=== PATIENT | male | born 1960 | race Caucasian/White ===

== ENCOUNTER 2020-09-14 08:07 | Outpatient (CLI) | payer BC, SELFPAY ==
--- NOTE | ~2020-09-14 | CT_ITS ---
EXAMINATION: CT abdomen pelvis w con EXAM DATE: 09/14/2020 08:45 INDICATION: K57.92 - Diverticulitis of intestine, part unspecified, without perforation or abscess wi thout bleeding . TECHNIQUE: Spiral CT of the abdomen and pelvis was performed following intravenous injection of 100 m L Omnipaque 350. Axial, coronal and sagittal images of the abdomen and pelvis were reviewed. The do se-length product (DLP) for this examination was 1331.96 mGy-cm. The exposure was tailored according to patient size (auto mA exposure control), and iterative reconstruction (ASIR) was used as addition al dose reduction technique. There is no prior study for comparison. FINDINGS: There is sizable liver lesion in segment 7 with discontinuous peripheral nodular enhancemen t, consistent with hemangioma, measuring up to 5 cm. Spleen, adrenal glands, pancreas are unremarkabl e. Gallbladder is unremarkable. No biliary obstruction. Portal and splenic veins are patent. Kidne ys enhance symmetrically. There is no hydronephrosis. The prostate is unremarkable. The bladder i s unremarkable. There is no retroperitoneal or pelvic lymphadenopathy. There is mild scattered art eriosclerotic disease. Small umbilical and left inguinal fat-containing hernias. There is mild to moderate scattered colonic diverticulosis. There is no adjacent inflammatory change to suggest diverticulitis. The appendix is normal. The stomach and small bowel are unremarkable. There is expected amount of colonic stool. No free intraperitoneal gas. The heart is normal in si ze. There are no pericardial or pleural effusions. The lung bases are unremarkable. There are no o steoblastic or osteolytic lesions identified. IMPRESSION: 1. Small umbilical and left inguinal fat-containing hernias. 2. Right liver lesion consistent with hemangioma 3. Mild to moderate scattered diverticulosis. Reviewed, dictated and finalized at location B.
[2020-09-14 08:36] LABS: Estimated Glomerular Filt Rate > 60
== END 2020-09-14 08:08 | disposition home or self-care (01) ==
PROVIDERS: PCP Family Medicine; Visit Provider Physician Assistant
DX: K57.92 Diverticulitis of intestine, part unspecified, without perforation or abscess without bleeding (principal); K42.9 Umbilical hernia without obstruction or gangrene; K40.90 Unilateral inguinal hernia, without obstruction or gangrene, not specified as recurrent; K76.9 Liver disease, unspecified
CPT/HCPCS: 74177; Q9967

== ENCOUNTER 2021-01-19 08:07 | Outpatient (CLI) | payer BC, SELFPAY ==
--- NOTE | 2021-01-19 08:18 | ECG_ITS ---
Measurements Intervals [place] Rate: 72 P: 17 ME: 184 QRS: -11 QRSD: 104 T: 31 QT: 367 QTc: 404 Interpretive Statements SINUS RHYTHM BORDERLINE R WAVE PROGRESSION, ANTERIOR LEADS BORDERLINE ECG Electronically Signed On 01-19-2021 8:30:57 BRAKE LININGS [employer]ATER by Winston Esquivel D.O.
== END 2021-01-19 08:08 | disposition home or self-care (01) ==
LOC: ANHSURGERY 08:13
PROVIDERS: PCP Family Medicine; Visit Provider Surgery
DX: I10 Essential (primary) hypertension (principal); Z01.818 Encounter for other preprocedural examination; R94.31 Abnormal electrocardiogram [ECG] [EKG]
CPT/HCPCS: 93005

== ENCOUNTER 2021-01-23 02:48 | Day surgery (SDC) | payer BC, SELFPAY ==
[2021-01-17 08:43] VITALS: BMI 28.7
--- NOTE | 2021-01-17 09:21 | PC.NURSE ---
Report to the Outpatient Waiting Room, entrance under the green pavilion located off [facility], at time __12:15 on date __01/23/21 . OR Time: _2:15 . - You and your visitor will be asked a series of questions to screen for COVID 19 for your protection. - A mask is required within the hospital. - Only one visitor is allowed at this time. Patient visitors will be guided where to wait when not with patient. Preoperative COVID Testing Requirements: No COVID Test needed if: (proof is required; if not received patient will have Rapid Test prior to entry) - Patient has received COVID Vaccine at least 14 days prior to procedure date or - Patient has positive COVID test result within last 90 days of surgery date. COVID Test needed if above criteria is not met If not COVID vaccinated a COVID test must be conducted within 72 hours of surgery and patient is asked to isolate self from time of testing until procedure. You will go to the [facility] Site for your COVID testing. The [facility] site is located at the corner of [address] [facility]. You will only be called if COVID results are positive and your surgeon may reschedule your elective surgery date. Patients may have clear liquids (water, carbonated beverages, clear teas, apple juice) until 3 hours prior to surgery with a maximum of 20 ounces. STOP CLEAR LIQUIDS AT 11:15am on the morning of surgery. - No food from midnight until time of surgery - Infants may have breast milk until 4 hours before surgery, infant formula 6 hours prior to surgery. - Children will be allowed to drink immediately following surgery. If applicable, please bring a bottle or sippy cup to assist with drinking. Juice, water, soda, and popsicles are readily available. For infants on formula, please bring formula the day of surgery. Pacifiers are allowed. Take the following medications with a SIP of water the morning of surgery: _OLMESARTAN Medications to discontinue per physician ____MULTIVITAMINS &/OR SUPPLEMENTS Date to take last dose___01/20/21 Please no make-up, nail bulgarian, hairspray, perfume, deodorant, or body powder the day of surgery. No jewelry (including any body piercings) or valuables the day of surgery, leave them at home. Please take a shower or bath the night before, or the morning of, surgery with an antibacterial soap. Wear comfortable, loose fitting clothing. Children are encouraged to wear pajamas. - Jewelry must be removed prior to entering the operating room. Rings and piercings that are not removed may be cut off. - The hospital will not accept responsibility for valuables. - Please leave all valuables, including medications, at home the day of surgery. If you are going home after surgery, a licensed bull driver must drive you home. - NO public transportation without another adult. - We recommend that an adult stay with you for 24 hours following discharge. - We also recommend that you do not drive, make important decision, drink alcoholic beverages, or take any drugs that were not prescribed by your health care provider for at least 24 hours after your discharge time. For Pediatric surgeries, we recommend two adults accompany the child home (only one inside the building at this time). Follow any additional instructions given to you from your surgeon. Telephone instructions given to DEVIN HARDIN and asked if any additional questions and then verbalized understanding. Patient advised to call surgeon office or pre surgery nurse liaison [phone] if any additional questions.
[2021-01-23] VITALS (8 sets, daily range): BP systolic 121–143; BP diastolic 59–96; PULSE 60–79; RESP 10–18; TEMP 36.1–36.5; O2SAT 98–100
[2021-01-23] MEDS: KETOROLAC 15 MG/ML VIAL (*BKC) IV PUSH (11:12)
[2021-01-23] MEDS: ACETAMINOPHEN 500 MG TABLET 1000 MG PO (11:12)
[2021-01-23] MEDS: LACTATED RINGERS 1,000 ML 30 ML IV CONT ×2 (11:12→14:02)
--- NOTE | 2021-01-23 11:57 | WPDANESEPPF ---
Anes - Initial Pre Proc Eval Procedure: Operation Date: 01/23/21 12:45 Proposed Procedures p Open Umbilical Hernia Repair Possible Mesh - Michael Arroyo DO s Excision of Right Hip Mass - Michael Arroyo DO Date/Time: 01/23/21 11:57 Surgeon: Michael Arroyo DO Pre Op Diagnosis: umbilical hernia, 6cm rt hip mass Patient Data Age: 60 Gender: M Height: 1.83 m Weight: 99.3 kg Last Vital Signs Temp 36.5 C 01/23/21 10:57 Pulse 64 01/23/21 10:57 Resp 18 01/23/21 10:57 BP 143/96 H 01/23/21 10:57 Pulse Ox 98 01/23/21 10:57 Allergies Allergy/AdvReac Type Severity Reaction Status Date / Time erythromycin base Allergy Unknown Nausea Verified 01/23/21 11:30 lisinopril AdvReac Severe cough Verified 01/23/21 11:30 Home Medications Medication Instructions Recorded Confirmed Type psyllium husk (aspartame) 3.4 gram 6.8 gm PO DAILY #30 each 01/05/19 01/23/21 Rx oral powder packet aspirin 81 mg tablet,delayed 81 mg PO DAILY 06/16/19 01/23/21 History release glucosamine FOt-rod-asilghsksbi 2 tablet PO DAILY tablet 06/16/19 01/23/21 History 400 mg-200 mg-333 mg tablet omega-3 fatty acids 1,000 mg 1,000 mg PO DAILY 06/16/19 01/23/21 History capsule cetirizine 10 mg tablet 10 mg PO DAILY 12/02/19 01/23/21 History triamcinolone acetonide 0.1 % 1 applic TOPICAL QID #454 g 12/02/19 01/23/21 Rx topical cream olmesartan 20 mg tablet 20 mg PO DAILY #90 tablet 11/29/20 01/23/21 Rx Patient hx anesthesia problems: none Family hx anesthesia problems: none Results Review: All pre-operative results and documents have been reviewed as part of the pre-operative evaluation. [facility] Past Medical History Medical History (Updated 12/16/20 @ 16:51 by Michael Arroyo DO) Hx of hemorrhoids Surgical History Surgical History History of skin graft Hx of left inguinal hernia repair 1961 Hx of right inguinal hernia repair open repair with mesh in 2005 Family History Family History Father Hypertension Sibling Family history of rheumatoid arthritis Carcinoma of colon Hypertension Mother Family history of cardiovascular disease Cerebrovascular accident Hypertension Other Family history of psoriasis Social History Social History Smoking status: Never smoker Alcohol intake: never Substance use: never Substance use type: does not use Living arrangements: with family Spiritual care concerns: No Anes - Eval Final PreProcedure Day of Procedure 01/23/21 11:57 Patient weight: overweight Heart: regular rate and rhythm Lungs: clear to auscultation Airway: Mallampati scale class 1 Neurological: alert and oriented Last oral intake: >/= 8 hours ASA classification: II Emergent: no Anesthetic plan: proceed Anesthesia type and monitoring: general ETT and standard monitoring Results Review: All pre-operative results and documents have been reviewed as part of the pre-operative evaluation. Informed Consent: The patient's anesthetic plan and its attendant risks and benefits were discussed with the patient/family/POA. Questions were solicited and answers provided to the satisfaction of the patient/family/POA.
--- NOTE | 2021-01-23 12:31 | WPDHPUPDATE1 ---
History and Physical Update Update Date/Time: 01/23/21 12:31 History and Physical has been reviewed, including an updated exam of the patient. There are NO changes in the patient's condition. Risks, benefits, and alternatives have been discussed and questions answered. Patient agrees to proceed with procedure.
--- NOTE | 2021-01-23 12:31 | PM.IMHP ---
H&P: HPI History of Present Illness Date/Time: 01/23/21 12:31 Chief Complaint: umbilical hernia, right hip mass Narrative: 60 yo man presents for umbilical hernia repair and excision of 6cm right hip mass. He reports no changes since last seen in office. Review of Systems Review of Systems: All systems reviewed & are unremarkable except as noted in HPI and below Constitutional: Constitutional: Denies chills, Denies fever(s), Denies headache(s) and Denies weight loss Eyes: Eyes: Denies change in vision ENT: Denies dizziness, Denies headache(s), Denies neck mass and Denies throat swelling Cardiovascular: Cardiovascular: Denies chest pain, Denies lightheadedness and Denies dyspnea Respiratory: Respiratory: Denies cough, Denies dyspnea and Denies wheezing Gastrointestinal: Gastrointestinal: Denies abdominal pain, Denies change in bowel habits, Denies nausea and Denies vomiting Genitourinary: Genitourinary: Denies hematuria and Denies dysuria Musculoskeletal: Musculoskeletal: Reports as per HPI Integumentary/Breasts: Skin/Breast: Reports as per HPI Neurologic: Denies dizziness and Denies headache(s) Allergic/Immunologic: Allergic/Immunologic: Denies throat swelling and Denies wheezing PMFSH Past Medical History Medical History (Updated 12/16/20 @ 16:51 by Michael Arroyo DO) Hx of hemorrhoids Surgical History Surgical History History of skin graft Hx of left inguinal hernia repair 1961 Hx of right inguinal hernia repair open repair with mesh in 2005 Family History Family History Father Hypertension Sibling Family history of rheumatoid arthritis Carcinoma of colon Hypertension Mother Family history of cardiovascular disease Cerebrovascular accident Hypertension Other Family history of psoriasis Social History Social History Smoking status: Never smoker Alcohol intake: never Substance use: never Substance use type: does not use Living arrangements: with family Spiritual care concerns: No Meds Home Medications and Allergies Home Medications Medication Instructions Recorded Confirmed Type psyllium husk (aspartame) 3.4 gram 6.8 gm PO DAILY #30 each 01/05/19 01/23/21 Rx oral powder packet aspirin 81 mg tablet,delayed 81 mg PO DAILY 06/16/19 01/23/21 History release glucosamine KVa-zsd-uauzpvsfofg 2 tablet PO DAILY tablet 06/16/19 01/23/21 History 400 mg-200 mg-333 mg tablet omega-3 fatty acids 1,000 mg 1,000 mg PO DAILY 06/16/19 01/23/21 History capsule cetirizine 10 mg tablet 10 mg PO DAILY 12/02/19 01/23/21 History triamcinolone acetonide 0.1 % 1 applic TOPICAL QID #454 g 12/02/19 01/23/21 Rx topical cream olmesartan 20 mg tablet 20 mg PO DAILY #90 tablet 11/29/20 01/23/21 Rx Allergies Allergy/AdvReac Type Severity Reaction Status Date / Time erythromycin base Allergy Unknown Nausea Verified 01/23/21 11:30 lisinopril AdvReac Severe cough Verified 01/23/21 11:30 Vital Signs Vital Signs - 24 hr 01/23/21 10:57 Temperature 36.5 C Pulse Rate 64 Respiratory Rate 18 Blood Pressure 143/96 H Pulse Oximetry 98 Exam Const: General: no acute distress and alert Orientation/consciousness: patient oriented x3 HENMT: Head: normocephalic and atraumatic Ears: hearing grossly normal bilaterally General nose exam: Normal nares present Mouth: Yes Normal oral and palatal mucosa present Eyes: Periorbital: periorbital findings normal Sclera: sclerae normal EOM: EOMs intact bilaterally Neck: Neck: normal visual inspection, no lymphadenopathy and trachea midline Chest: Chest palpation & inspection: normal inspection of the chest Resp: Effort & Inspection: normal respiratory effort Auscultation: clear to auscultation bilaterally Cardio: Jugular venous distension: no JVD Rat
[2021-01-23] MEDS: ceFAZolin 2 GM/D5W 50 ML 2 GM/50 ML BAG IVPB (12:43)
[2021-01-23] MEDS: BUPIVACAINE HCL 0.5% PF 30 ML VIAL INFILTRATE (13:47)
--- NOTE | 2021-01-23 13:57 | W.PM.PROC2 ---
Procedure Note - Detailed Date of Procedure 01/23/21 Pre-op Diagnosis umbilical hernia, 6cm rt hip mass Post-op Diagnosis same Procedure Performed 1. Umbilical hernia repair with Parietex ventral patch 2. Excision of 6 cm right hip mass 3. Layered closure Surgeon Michael Arroyo, DO Anesthesia general and local (0.5% bupivacaine) Indications This is a 60-year-old man who presented with pain at his umbilicus. He noticed a small lump protruding at his umbilicus and was found to have a small reducible umbilical hernia on exam. Discussions were made with the patient about treatment options and decision was made to proceed with a umbilical hernia repair with possible mesh. The patient also has a mass on his right hip that appeared to be a subcutaneous lipoma. This was causing him some discomfort as well and decision was made to proceed with excision of 6 cm right hip mass. Findings Umbilical hernia repair was performed. The patient was found to have a 1.5 cm umbilical hernia containing some preperitoneal fat. The hernia sac was excised and sent to the lab for pathology. Decision was made to repair this using a 4.6 cm Parietex ventral patch. The 6 cm right hip mass was then excised as well. This appeared to be a subcutaneous lipoma. Mass was completely excised and sent to the lab for pathology. The incision was then closed in layers using 3-0 Vicryl simple interrupted sutures in Levy's fascia and 4-0 Monocryl subcuticular suture. Description of Procedure Procedure as well as risks, benefits, and alternatives were discussed with the patient. Written consent was obtained and placed in chart prior to procedure. Patient was brought back to surgical suite. He was placed supine on operating table. He was then intubated by Anesthesia Department. His abdomen was prepped and draped in sterile fashion using chlorhexidine prep. 0.5% bupivacaine was infiltrated locally around the operative area. A 3 cm curvilinear incision was made just superior to the umbilicus using a 15 blade scalpel. Electrocautery was used for hemostasis and for dissection down through the subcutaneous fat. Hernia sac was encountered and this was carefully freed up from surrounding subcutaneous fat using electrocautery. The hernia sac was freed up all the way down to the level of the fascia, and then it was transected using electrocautery. The hernia sac was sent to the lab for pathology. The umbilical stalk was then lifted off of the fascia with electrocautery. The hernia defect was then measured. This was measuring approximately 15 mm. The decision was made to use a 4.6 cm Parietex ventral patch. The peritoneum was cleared under the fascia circumferentially around the hernia using blunt dissection and electrocautery. Once a wide enough pocket was created for the mesh, the mesh was then placed within this preperitoneal pocket and laid out flat centered on the hernia defect. The mesh appeared to be sitting in proper position. The mesh was then secured at the 4 corners using 0 Ethibond U-stitch trans fascial sutures. Once all 4 sutures were placed, the mesh was lifted up against the abdominal wall and appeared to be properly centered on the hernia defect. The fascia of the hernia defect was then reapproximated over the mesh using 0 Ethibond [id number]-vr-dzias sutures. The 4 transfascial sutures were then tied down in place. The repair was inspected and appeared secure. 0.5% bupivacaine with epinephrine was infiltrated around the fascia and subcutaneous space. The umbilical stalk was then reapproximated to the fascia using a 3 0 Vicryl simple interrupted suture. The deep dermis was reapproximated using 3 0 Vicryl simple interrupted sutures, and then the skin was approximated using 4 Monocryl running subcuticular suture. Exofin glue was then applied on top. The patient was then awakened from anesthesia, extubated, and transferred to recovery. I then moved my attention to the right hi
== END 2021-01-23 15:42 | disposition home or self-care (01) ==
PROVIDERS: PCP Family Medicine; Visit Provider Surgery
PROC: (CPT 49585; principal; 2021-01-23 12:45)
PROC: (CPT 49585; 2021-01-23 12:45)
DX: K42.9 Umbilical hernia without obstruction or gangrene (principal); D17.23 Benign lipomatous neoplasm of skin and subcutaneous tissue of right leg; Z79.82 Long term (current) use of aspirin
CPT/HCPCS: 49585; 27337; 88302; 88304; A9270; C1781; J0690; J1100; J1885; J2405; J2704; J3010; J7120

== ENCOUNTER 2021-02-13 20:08 | Emergency (ER) | payer BC, SELFPAY ==
--- NOTE | ~2021-02-13 | XR_ITS ---
XR chest 1V portable DATE: 02/13/2021 21:03 INDICATION: Midsternal pressure. Palpitations. Atrial fibrillation. Covid-positive on 02/09/2021. TECHNIQUE: Portable upright AP chest on 02/13/2021 at 2054 hours COMPARISON: None FINDINGS: Normal heart size. No hilar or mediastinal enlargement. No pulmonary infiltrate or consolid ation, pleural effusion or pulmonary vascular congestion or pneumothorax. Mild dextro scoliosis of the thoracic spine. IMPRESSION: No active cardiopulmonary disease Reviewed, dictated and finalized at location A. T PRODUCTION ASSOCIATE
--- NOTE | ~2021-02-13 | CT_ITS ---
EXAMINATION: CTA chest PE protocol EXAM DATE: 02/14/2021 02:13 INDICATION: dyspnea and COVID. Palpitations. TECHNIQUE: Spiral CTA of the chest (pulmonary arteries) was performed with 100 cc Omnipaque 350 intr avenous contrast injection. Images were acquired during the pulmonary arterial phase. Coronal maxi mum intensity projection 3D-reconstructions were created by the technologist on dedicated workstation . Axial, coronal and sagittal reformatted images were reviewed. The dose-length product (DLP) for t his examination was 397.18 mGy-cm. The exposure was tailored according to patient size (auto mA exp osure control), and iterative reconstruction (ASIR) was used as additional dose reduction technique. There is no prior study for comparison. FINDINGS: Pulmonary arteries are well opacified and without intraluminal filling defects. No thora cic aortic dissection. The lungs are clear. There are no pleural or pericardial effusions. Trach eobronchial tree is patent. There is no mediastinal, hilar or axillary lymphadenopathy. There is no pneumothorax. Heart normal in size. No evidence of coronary arterial calcification. Upper abd omen is unremarkable. There is thoracic spondylosis without osteoblastic or osteolytic lesions iden tified. IMPRESSION: No acute cardiopulmonary findings. Reviewed, dictated and finalized at location A. CYLINDER PRESS OPERATOR
--- NOTE | 2021-02-13 20:10 | ECG_ITS ---
Measurements Intervals [place] Rate: 112 P: SC: 0 QRS: -27 QRSD: 107 T: 37 QT: 305 QTc: 416 Interpretive Statements ATRIAL FLUTTER/TACHYCARDIA WITH RAPID VENTRICULAR RESPONSE CANNOT RULE OUT SEPTAL INFARCT, AGE INDETERMINATE BASELINE ARTIFACT- I, II, III, AVR, AVL, AVF ABNORMAL ECG Electronically Signed On 02-14-2021 7:31:22 RADIOLOGIST CHIEF OF BREAST IMAGING by Winston Esquivel D.O.
[2021-02-13 20:15] VITALS: BP 156/98; PULSE 112; RESP 20; TEMP 36.1; O2SAT 100
[2021-02-13 20:31] LABS: Basophils Percent Auto 0.3 % (0.2-1.2); Eosinophils Absolute Auto 0.1 K/mm3 (0-0.3); Eosinophils Percent Auto 2.6 % (0-4.4); Hematocrit 46.1 % (42.0-52.0); Hemoglobin 15.6 g/dL (14.0-18.0); Immature Granulocyte Absolute 0.01 K/mm3 (0.00-0.031); Immature Granulocyte Percent A 0.3 % (0-0.5); Lymphocytes Absolute Auto 1.11 K/mm3 (0.9-3.2); Lymphocytes Percent Auto 32.6 % (18.3-44.2); Mean Corpuscular HGB Conc 33.8 g/dl (32-36); Mean Corpuscular Hemoglobin 30.4 pg (26-34); Mean Corpuscular Volume 89.7 fl (80-100); Mean Platelet Volume 9.6 fl (7.4-10.4); Monocytes Absolute Auto 0.3 K/mm3 (0.1-0.6); Monocytes Percent Auto 8.8 % (2.6-8.5); Neutrophils Absolute Auto 1.9 K/mm3 (1.3-6.7); Neutrophils Percent Auto 55.4 % (45.5-73.1); Platelet Count Result 246 k/mm3 (150-375); Red Blood Count 5.14 M/mm3 (4.6-6.20); Red Cell Distribution Width 12.9 % (11.5-14.5); White Blood Count 3.4 K/mm3 (4.5-10.0)
[2021-02-13 20:40] LABS: Prothrombin Time 12.6 Seconds (11.1-14.7)
[2021-02-13 20:41] LABS: Partial Thromboplastin Time 26.6 SECONDS (22.3-36.8)
[2021-02-13 20:59] LABS: Alanine Aminotransferase 31 U/L (4-50); Albumin Level 4.4 g/dL (3.5-5.1); Alkaline Phosphatase 60 U/L (38-126); Anion Gap 0 mmol/L (8-16); Aspartate Amino Transferase 34 U/L (17-59); Bilirubin,Total 0.5 mg/dL (0.2-1.3); Blood Urea Nitrogen 12 mg/dL (9-20); Calcium 8.5 mg/dL (8.4-10.2); Carbon Dioxide 32 mmol/L (22-30); Chloride 104 mmol/L (98-107); Estimated CRCL calculation 78 ml/min; Estimated Glomerular Filt Rate > 60; Glucose 156 mg/dL (65-110); Lipase 185 U/L (23-300); Potassium 3.6 mmol/L (3.4-5.0); Sodium 136 mmol/L (137-145)
[2021-02-13 21:07] LABS: Troponin I < 0.012 ng/mL (0.000-0.034)
--- NOTE | 2021-02-13 23:34 | ED.ARRPALP ---
HPI - Arrhythmia/Palpitations General Chief Complaint: Arrhythmia/Palpitations Stated Complaint: COVID +, palpitations Time Seen by Provider: 02/13/21 23:19 Source: RN notes reviewed History of Present Illness HPI narrative: Patient presents emergency department from home for arrhythmia. Patient states that he was diagnosed with COVID-19 with a home test on February 09 he states he began to have symptoms on the patient states that today he noted that his heart was beating fast and irregular for like a previous episode of atrial fibrillation he had approximately 25 years ago. At that time was contributed to increased caffeine use and has had no symptoms since that time he denies any chest pain notes mild dyspnea on a cough patient does also state he had recent abdominal wall hernia surgery by Dr. Arroyo at the beginning of January Related Data Home Medications Medication Instructions Recorded Confirmed aspirin 81 mg tablet,delayed 81 mg PO DAILY 06/16/19 01/23/21 release glucosamine DFh-uco-drapveolhhm 2 tablet PO DAILY tablet 06/16/19 01/23/21 400 mg-200 mg-333 mg tablet omega-3 fatty acids 1,000 mg 1,000 mg PO DAILY 06/16/19 01/23/21 capsule cetirizine 10 mg tablet 10 mg PO DAILY 12/02/19 01/23/21 Allergies Allergy/AdvReac Type Severity Reaction Status Date / Time erythromycin base Allergy Unknown Nausea Verified 02/13/21 20:20 lisinopril AdvReac Severe cough Verified 02/13/21 20:20 Review of Systems Review of Systems: Gen.: Denies fevers or chills Eyes: Denies eye pain or visual change ENT: Denies congestion Respiratory: Denies shortness of breath or cough CV: See HPI GI: Denies abdominal pain nausea, emesis or diarrhea Musculoskeletal: Denies back pain or muscle pain Neuro: Denies numbness, tingling, weakness or focal weakness Skin: Denies rash Except as documented, all other systems reviewed and negative PMFSH Past Medical History Medical History Hx of hemorrhoids Surgical History Surgical History History of skin graft Hx of left inguinal hernia repair 1961 Hx of right inguinal hernia repair open repair with mesh in 2005 Family History Family History Father Hypertension Sibling Family history of rheumatoid arthritis Carcinoma of colon Hypertension Mother Family history of cardiovascular disease Cerebrovascular accident Hypertension Other Family history of psoriasis Social History Social History Smoking status: Never smoker Alcohol intake: never Substance use: never Substance use type: does not use Spiritual care concerns: No Exam Narrative: APPEARANCE: No acute distress, nontoxic, resting in bed EYES: EOMI HEENT: Normocephalic, atraumatic, OMM RESPIRATORY: No respiratory distress Clear to auscultation bilaterally with no rhonchi wheezing or rales. CARDIOVASCULAR: Irregular irregular without murmurs rubs or gallops. ABDOMINAL: Soft, nontender, nondistended, no rebound or guarding MUSCULOSKELETAl: Moves all extremities. No clubbing, cyanosis or edema. NEURO: Awake and alert. Following commands, speech normal, no focal deficits SKIN:: Warm, dry. No rashes lesions or abrasions PSYCHIATRIC: Normal affect/mood, Course Course Emergency Course: Called and discussed with Dr. Barnes presentation work-up at this time he recommends the patient be started on metoprolol 25 mg twice a day for rate control as well as Eliquis recommends discharge to follow-up as an outpatient : Discussed with Dr. Stokes per Dr. Rivera presentation work-up updated him on treatment plan and agreement at this time Discussed with patient results of workup and diagnosis. Discussed need for follow-up with primary care, proper use of medication, and reasons to return to the [facility]
[2021-02-13 23:38] VITALS: BP 124/83; PULSE 108; RESP 17; O2SAT 95
[2021-02-14] VITALS (13 sets, daily range): BP systolic 117–136; BP diastolic 79–97; PULSE 85–121; RESP 12–21; O2SAT 96–100
[2021-02-14 00:03] LABS: Troponin I < 0.012 ng/mL (0.000-0.034)
--- NOTE | 2021-02-14 00:22 | ECG_ITS ---
Measurements Intervals [place] Rate: 83 P: ND: 0 QRS: -27 QRSD: 104 T: 19 QT: 314 QTc: 370 Interpretive Statements ATRIAL FLUTTER/TACHYCARDIA BORDERLINE R WAVE PROGRESSION, ANTERIOR LEADS BASELINE ARTIFACT- II, III, AVR, AVL, AVF, V1-V6 ABNORMAL ECG Electronically Signed On 02-14-2021 7:36:14 DISC PAD PLATE FILLER by Winston Esquivel D.O.
[2021-02-14] MEDS: SODIUM CHLORIDE 0.9% IV 1,000 ML 999 ML IV CONT (00:55)
[2021-02-14 03:06] LABS: Troponin I < 0.012 ng/mL (0.000-0.034)
[2021-02-14] MEDS: METOPROLOL TARTRATE 25 MG TABLET PO (05:07)
[2021-02-14] MEDS: APIXABAN 5 MG TABLET PO (05:08)
== END 2021-02-14 06:16 | disposition home or self-care (01) ==
PROVIDERS: Emergency Medicine; Emergency Provider Emergency Medicine; PCP Family Medicine
DX: U07.1 COVID-19 (principal); I48.92 Unspecified atrial flutter; Z79.82 Long term (current) use of aspirin
CPT/HCPCS: 36415; 71045; 71275; 80053; 83690; 84484; 85025; 85610; 85730; 93005; 96360; 96361; 99284; A9270; J7030; Q9967

== ENCOUNTER 2021-03-17 02:19 | Day surgery (SDC) | payer BC, SELFPAY ==
[2021-03-16 14:39] VITALS: BMI 28.2
[2021-03-17] VITALS (13 sets, daily range): BP systolic 91–145; BP diastolic 60–122; PULSE 63–111; RESP 9–22; TEMP 36.2; O2SAT 9–100; BMI 28.2
--- NOTE | 2021-03-17 07:00 | ECG_ITS ---
Measurements Intervals [place] Rate: 61 P: 27 CT: 186 QRS: -23 QRSD: 101 T: 7 QT: 399 QTc: 402 Interpretive Statements SINUS RHYTHM DELAYED PRECORDIAL R/S TRANSITION BORDERLINE ECG Electronically Signed On 03-17-2021 9:32:10 LINE SERVER by Winston Esquivel D.O.
--- NOTE | 2021-03-17 07:00 | ECG_ITS ---
Measurements Intervals [place] Rate: 107 P: MI: 0 QRS: -22 QRSD: 94 T: 25 QT: 335 QTc: 447 Interpretive Statements ATRIAL FLUTTER/TACHYCARDIA WITH RAPID VENTRICULAR RESPONSE DELAYED PRECORDIAL R/S TRANSITION BASELINE ARTIFACT- III, AVL, AVF ABNORMAL ECG Electronically Signed On 03-17-2021 7:48:51 [employer] by Winston Esquivel D.O.
[2021-03-17 08:11] LABS: Alanine Aminotransferase 23 U/L (4-50); Albumin Level 4.4 g/dL (3.5-5.1); Alkaline Phosphatase 62 U/L (38-126); Anion Gap 8 mmol/L (8-16); Aspartate Amino Transferase 24 U/L (17-59); Bilirubin,Total 0.6 mg/dL (0.2-1.3); Blood Urea Nitrogen 10 mg/dL (9-20); Carbon Dioxide 24 mmol/L (22-30); Chloride 108 mmol/L (98-107); Estimated CRCL calculation 78 ml/min; Estimated Glomerular Filt Rate > 60; Glucose 135 mg/dL (65-110); Magnesium 2.1 mg/dL (1.6-2.3); Potassium 4.2 mmol/L (3.4-5.0); Sodium 140 mmol/L (137-145)
--- NOTE | 2021-03-17 08:38 | WPDMODSED ---
Moderate Sedation Note-Pt Data Patient Data Diagnosis: Atrial flutter with rapid ventricular response Present Complaint: none Procedure to be performed/Plan: transesophageal echocardiogram guided elective electrical cardioversion Allergies Allergy/AdvReac Type Severity Reaction Status Date / Time erythromycin base Allergy Unknown Nausea Verified 02/24/21 08:08 lisinopril AdvReac Severe cough Verified 02/24/21 08:08 Home Medications Medication Instructions Recorded Confirmed Type psyllium husk (aspartame) 3.4 gram 6.8 gm PO DAILY #30 each 01/05/19 03/16/21 Rx oral powder packet aspirin 81 mg tablet,delayed 81 mg PO DAILY 06/16/19 03/16/21 History release glucosamine ZUl-[id number]-gnopxfeslkj 2 tablet PO DAILY tablet 06/16/19 03/16/21 History 400 mg-200 mg-333 mg tablet omega-3 fatty acids 1,000 mg 1,000 mg PO DAILY 06/16/19 03/16/21 History capsule cetirizine 10 mg tablet 10 mg PO DAILY 12/02/19 03/16/21 History triamcinolone acetonide 0.1 % 1 applic TOPICAL QID #454 g 12/02/19 03/16/21 Rx topical cream olmesartan 20 mg tablet 20 mg PO DAILY #90 tablet 11/29/20 03/16/21 Rx apixaban [Eliquis] 5 mg PO BID #30 tablet 02/14/21 03/16/21 Rx metoprolol tartrate 25 mg tablet 25 mg PO BID #60 tablet 02/27/21 03/16/21 Rx Current Medications: Active Medications Sodium Chloride (Normal Saline Iv) 1,000 mls @ 30 mls/hr IV CONT .Q24H KENDRICK Sedation/Anesthesia: No previous sedation/anesthesia problems (including family history). ON LICENSE OF [facility] Past Medical History Medical History Atrial flutter Essential (primary) hypertension Hx of hemorrhoids Mixed hyperlipidemia Surgical History Surgical History H/O excision of mass excision of 6 cm right hip mass 01/23/21 H/O umbilical hernia repair 01/23/21 History of skin graft Hx of left inguinal hernia repair 1961 Hx of right inguinal hernia repair open repair with mesh in 2006 Family History Family History Father Hypertension Sibling Family history of rheumatoid arthritis Carcinoma of colon Hypertension Mother Family history of cardiovascular disease Cerebrovascular accident Hypertension Other Family history of psoriasis Social History Social History Alcohol intake: never Substance use: never Substance use type: does not use Living arrangements: with family Spiritual care concerns: No Mod Sed Physical Exam Physical Exam Pre Procedural Exam: Normal: Appearance, Eyes, Ears, Nose, Neck ( supple, normal range of motion), Throat ( posterior hypopharynx clear, nonerythematous), Airway ( normal anatomy, no obstruction), Lungs ( clear to auscultation bilaterally), Heart Size, Heart Rate ( tachycardia), Heart Rhythm (regularly irregular ), Neuro Exam, Abdomen, Liver, Extremities and Skin Hours since solid foods: 12 Hours since liquid intake: 12 Mallampati Classification: class III Internal Medicine - PN: Obj Da Vital Signs Vital Signs: Vital Signs - 24 hr 03/17/21 07:30 Temperature 36.2 C L Pulse Rate 107 H Respiratory Rate 20 Blood Pressure 136/94 H Pulse Oximetry 97 Meds/Results Medications: Active Medications Generic Name Dose Route Start Last Admin Trade Name Freq PRN Reason Stop Dose Admin Sodium Chloride 1,000 mls @ 30 mls/hr 03/17/21 07:00 Normal Saline Iv IV CONT .Q24H KENDRICK Labs CBC & Chem 7: 03/17/21 07:36 Labs: Laboratory Results - last 24 hr 03/17/21 07:36 Sodium 140 Potassium 4.2 Chloride 108 H Carbon Dioxide 24 Anion Gap 8 BUN 10 Creatinine 1.00 Estim Creat Clear Calc 78 Estimated GFR > 60 Glucose 135 H Calcium 9.0 Magnesium 2.1 Total Bilirubin 0.6 AST 24 ALT 23 Alkaline Phosphatase 62 Total Protein 7.0 Albumin 4.4 ASA Cl
--- NOTE | 2021-03-17 08:40 | WPDHPUPDATE1 ---
History and Physical Update Update Date/Time: 03/17/21 08:40 History and Physical has been reviewed, including an updated exam of the patient. There are NO changes in the patient's condition. Risks, benefits, and alternatives have been discussed and questions answered. Patient agrees to proceed with procedure.
--- NOTE | 2021-03-17 09:12 | WPDTECDV ---
AURA with Cardioversion Date of procedure: 03/17/21 Procedure Type: Transesophageal echocardiogram guided elective electrical cardioversion Diagnosis: Atrial flutter with rapid ventricular response Indications: Atrial flutter with rapid ventricular response Description of Procedure: Brief history present illness: Patient is a pleasant 60-year-old male with history of hypertension, dyslipidemia presents with new diagnosis atrial flutter with rapid ventricular response symptomatic with palpitations after COVID-19 infection referred for transesophageal echocardiogram-guided elective electrical cardioversion in attempt to restore sinus rhythm. patient has been anticoagulated for less than 4 weeks on systemic anticoagulation and per our discussion transesophageal echocardiographic guidance will be pursued to exclude intracardiac thrombus. Procedure in detail: After verbal and written informed consent was obtained the patient risks, benefits, and alternatives explained in detail the patient agreed to proceed with the plan of care as outlined above. Patient was evaluated at bedside in the Cardiac catheterization lab recovery room. On examination, neck was supple with normal range of motion, no restrictions to opening of the oral cavity, jaw angle and posterior hypopharynx was clear. Lungs were clear to auscultation. Patient was placed in appropriate 30 to 45 degree angle in a supine, slight left lateral decubitus position. Patient was monitored throughout the study with telemetry, oxygen saturation, end-tidal CO2 monitoring, blood pressure, heart rate, and respirations. Anterior and posterior defibrillator pads placed in the appropriate positions. The posterior hypopharynx was then locally anesthetized using repeated administration of Hurricaine spray as well as gargled viscous lidocaine. After local anesthetic of the posterior hypopharynx was achieved and the oral bite block placed, moderate sedation was administered. Through the oral bite block, the transesophageal echocardiogram probe was advanced into the posterior hypopharynx and into the esophagus easily and without complication. Multiple, multiplanar echocardiographic images were obtained in multiple standard re-projections. Pulsed wave, continuous-wave, and color-flow Doppler were utilized in conjunction with this study. At the conclusion of the study, the transesophageal echocardiogram probe was removed easily and without complication. Patient tolerated the procedure well without difficulty. Patient was in atrial fibrillation throughout the study. Sedation: Moderate Sedation/Anesthesia administration: Patient denied previous intolerance or complications with anesthesia/sedation. Please see sedation note for documentation of the pre-procedure physical examination. As noted above, after adequate local anesthesia of the posterior hypopharynx was achieved, a total of 5mg intravenous Versed and a total of 125 mcg intravenous Fentanyl in multiple divided doses was utilized for moderate sedation. Sedation start time was and end time was for a total of minutes [id number] intra-procedure time. Sedation was administered by a qualified observer Elvia Norman RN under my supervision with intra-procedure [id number] observation and management throughout the entirety of the procedure. There were no other issues or complications and patient tolerated the procedure well and sedation protocol well and I was present for the entirety. Findings: FINDINGS: LEFT VENTRICLE: Size was normal with lower limits normal LV systolic function EF 50-55% without wall motion abnormalities borderline mild concentric left ventricular hypertrophy. RIGHT VENTRICLE: Size and systolic function within normal limits. LEFT ATRIUM: Normal size. RIGHT ATRIUM: Normal size. INTERATRIAL SEPTUM: Interatrial septum is aneurysmal with evidence of a small shunt with color-flow Doppler and with injection of agitated saline with bubble crossing
--- NOTE | 2021-03-17 09:39 | PC.NURSE ---
Dr Barnes speaking with pt about the outcome of procedure.
--- NOTE | 2021-03-17 10:53 | SUR.PHASEII ---
Discharge instructions read to pt. Pt states understanding. Pt transported by wheelchair by ISABEL Paulson for discharge.
== END 2021-03-17 11:08 | disposition home or self-care (01) ==
PROVIDERS: PCP Family Medicine; Visit Provider Internal Medicine Cardiovascular Disease
PROC: (CPT 93312; principal; 2021-03-17 08:30)
PROC: 5A2204Z Restoration of Cardiac Rhythm, Single (ICD-10-PCS; 2021-03-17 08:30)
DX: I48.92 Unspecified atrial flutter (principal); U09.9 Post COVID-19 condition, unspecified; R00.2 Palpitations; Z79.01 Long term (current) use of anticoagulants; I10 Essential (primary) hypertension; E78.2 Mixed hyperlipidemia; I34.0 Nonrheumatic mitral (valve) insufficiency; I44.30 Unspecified atrioventricular block
CPT/HCPCS: 36415; 80053; 83735; 92960; 93312; 93320; 93325; J2250; J3010; J7040

== ENCOUNTER → 2021-05-13 08:18 | Outpatient (CLI) | payer BC, SELFPAY ==
[2021-05-13 13:19] LABS: SARS-CoV-2 RNA PCR Negative
== END ==
PROVIDERS: PCP Family Medicine
DX: I48.92 Unspecified atrial flutter (principal); Z20.822 Contact with and (suspected) exposure to COVID-19
CPT/HCPCS: C9803; U0003; U0005

== ENCOUNTER 2021-05-13 09:01 | Outpatient (CLI) | payer BC, SELFPAY ==
[2021-05-13 09:43] LABS: Basophils Percent Auto 0.7 % (0.2-1.2); Eosinophils Absolute Auto 0.1 K/mm3 (0-0.3); Eosinophils Percent Auto 2.4 % (0-4.4); Hematocrit 46.8 % (42.0-52.0); Hemoglobin 15.3 g/dL (14.0-18.0); Immature Granulocyte Absolute 0.02 K/mm3 (0.00-0.031); Immature Granulocyte Percent A 0.5 % (0-0.5); Lymphocytes Percent Auto 21.9 % (18.3-44.2); Mean Corpuscular HGB Conc 32.7 g/dl (32-36); Mean Corpuscular Hemoglobin 30.3 pg (26-34); Mean Corpuscular Volume 92.7 fl (80-100); Mean Platelet Volume 9.5 fl (7.4-10.4); Monocytes Absolute Auto 0.5 K/mm3 (0.1-0.6); Monocytes Percent Auto 12.9 % (2.6-8.5); Neutrophils Absolute Auto 2.5 K/mm3 (1.3-6.7); Neutrophils Percent Auto 61.6 % (45.5-73.1); Platelet Count Result 260 k/mm3 (150-375); Red Blood Count 5.05 M/mm3 (4.6-6.20); Red Cell Distribution Width 13.2 % (11.5-14.5); White Blood Count 4.1 K/mm3 (4.5-10.0)
[2021-05-13 09:54] LABS: Alanine Aminotransferase 23 U/L (4-50); Albumin Level 4.5 g/dL (3.5-5.1); Alkaline Phosphatase 52 U/L (38-126); Anion Gap 8 mmol/L (8-16); Aspartate Amino Transferase 28 U/L (17-59); Bilirubin,Total 0.9 mg/dL (0.2-1.3); Blood Urea Nitrogen 11 mg/dL (9-20); Calcium 8.9 mg/dL (8.4-10.2); Carbon Dioxide 30 mmol/L (22-30); Chloride 103 mmol/L (98-107); Cholesterol 178 mg/dL (0-200); Estimated Glomerular Filt Rate > 60; Glucose 119 mg/dL (65-110); HDL Direct 24 mg/dL; Potassium 4.3 mmol/L (3.4-5.0); Sodium 141 mmol/L (137-145); Triglycerides 233 mg/dL (<150)
[2021-05-13 10:05] LABS: LDL Cholesterol Direct 95 mg/dL
[2021-05-13 10:29] LABS: Free T4 Free Thyroxine 0.81 ng/mL (0.78-2.19)
== END 2021-05-13 09:02 | disposition home or self-care (01) ==
PROVIDERS: PCP Family Medicine
DX: I48.4 Atypical atrial flutter (principal); E78.2 Mixed hyperlipidemia; I10 Essential (primary) hypertension; R60.9 Edema, unspecified; R73.03 Prediabetes; Z79.899 Other long term (current) drug therapy
CPT/HCPCS: 36415; 80053; 80061; 83036; 84439; 84443; 85025

== ENCOUNTER 2021-06-23 16:20 | Emergency (ER) | payer BC, SELFPAY ==
[2021-06-23 16:28] VITALS: BP 137/87; PULSE 70; RESP 18; TEMP 36.6; O2SAT 97
--- NOTE | 2021-06-23 16:49 | ED.GENADULT ---
HPI - General Adult General Chief complaint: Upper Respiratory Infection Stated complaint: Runny Nose,Cough,Congestion Source: patient Mode of arrival: ambulatory Limitations: no limitations History of Present Illness HPI narrative: Patient is a 61-year-old male who presents to the [facility] via POV for evaluation of a sinus problem that began approximately 1 week ago. Additionally, he reports wet, nonproductive cough, runny nose, sinus pressure, sinus congestion, sinus pain, and left ear popping. OTC sinus medications provide some relief. He does not identify aggravating factors. Denies known exposure to sick contacts. He is fully vaccinated against COVID and influenza. Related Data Home Medications Medication Instructions Recorded Confirmed aspirin 81 mg tablet,delayed 81 mg PO DAILY 06/16/19 06/23/21 release glucosamine SOb-oue-kprpenrxvqj 2 tablet PO DAILY tablet 06/16/19 06/23/21 400 mg-200 mg-333 mg tablet omega-3 fatty acids 1,000 mg 1,000 mg PO DAILY 06/16/19 06/23/21 capsule cetirizine 10 mg tablet 10 mg PO DAILY 12/02/19 06/23/21 metoprolol tartrate 50 mg tablet 50 mg PO BID 05/03/21 06/23/21 Allergies Allergy/AdvReac Type Severity Reaction Status Date / Time erythromycin base Allergy Intermediate Nausea Verified 06/23/21 16:24 lisinopril AdvReac Intermediate cough Verified 06/23/21 16:24 Review of Systems Review of Systems: Denies fever, chills, sweats, change in appetite, poor p.o. intake, sore throat, lymphadenopathy, dental pain, dizziness, persistent headaches, shortness of breath, wheezing, hemoptysis, chest pain, shortness of breath, abdominal pain, nausea, vomiting, and diarrhea. [facility] Past Medical History Medical History Atrial flutter Essential (primary) hypertension Hx of hemorrhoids Mixed hyperlipidemia Surgical History Surgical History H/O excision of mass excision of 6 cm right hip mass 01/23/21 H/O umbilical hernia repair 01/23/21 History of skin graft Hx of left inguinal hernia repair 1961 Hx of right inguinal hernia repair open repair with mesh in 2006 Family History Family History Father Hypertension Sibling Family history of rheumatoid arthritis Carcinoma of colon Hypertension Mother Family history of cardiovascular disease Cerebrovascular accident Hypertension Other Family history of psoriasis Social History Social History Alcohol intake: never Substance use: never Substance use type: does not use Spiritual care concerns: No Comments I have reviewed and agree with the patient's past medical, surgical, social, and family hx as documented by the RN. There is no relevant family history pertinent to the presenting complaint. Exam Narrative: GENERAL: Well-appearing, well-nourished, and in no acute distress. HEAD: Normocephalic, atraumatic. No evidence of facial swelling. Moderate maxillary sinus tenderness appreciated upon palpation. EYES: PERRLA and EOMI. No evidence of erythema, swelling, or drainage. ENT: Right TM is retracted. Left TM is retracted and erythematous. Bilateral ear canals are normal. No TM perforation. Nares clear, no rhinorrhea or epistaxis. Bilateral turbinates without erythema/ swelling. Mucous membranes moist and pink. Uvula is midline without erythema and swelling. No evidence of petechial rash, cobblestoning, lesions, ulcers, erythema, swelling, exudates, peritonsillar abscess, tenting, or drooling. Breath odor and voice normal. NECK: Supple. No Lymphadenopathy or nuchal rigidity appreciated. CHEST: Bilateral lung singh are clear to auscultation. No respiratory distress. No pleuritic cp upon examination. Moderate wet cough appreciated upon examination. HEART: Regular rate
== END 2021-06-23 17:00 | disposition home or self-care (01) ==
PROVIDERS: Emergency Provider Nurse Practitioner Family; PCP Family Medicine
DX: J06.9 Acute upper respiratory infection, unspecified (principal); J01.90 Acute sinusitis, unspecified; I10 Essential (primary) hypertension; E78.2 Mixed hyperlipidemia; Z79.82 Long term (current) use of aspirin
CPT/HCPCS: 99213; G0463

== ENCOUNTER 2023-02-15 09:43 | Outpatient (CLI) | payer BC, SELFPAY ==
[2023-02-15 13:46] LABS: Alanine Aminotransferase 23 U/L (6-50); Albumin Level 4.2 g/dL (3.5-5.1); Alkaline Phosphatase 58 U/L (38-126); Anion Gap 8 mmol/L (8-16); Aspartate Amino Transferase 45 U/L (17-59); Bilirubin,Total 0.9 mg/dL (0.2-1.3); Blood Urea Nitrogen 12 mg/dL (9-20); Calcium 8.9 mg/dL (8.4-10.2); Carbon Dioxide 28 mmol/L (22-30); Chloride 105 mmol/L (98-107); Cholesterol 191 mg/dL (0-200); Estimated Glomerular Filt Rate > 60; Glucose 112 mg/dL (65-110); HDL Direct 29 mg/dL; Potassium 4.5 mmol/L (3.4-5.0); Sodium 141 mmol/L (137-145); Triglycerides 172 mg/dL (<150)
[2023-02-15 13:59] LABS: LDL Cholesterol Direct 110 mg/dL
[2023-02-15 14:10] LABS: Prostate Specific Antigen 1.7 ng/mL (< OR = 4.0)
[2023-02-15 15:36] LABS: Hemoglobin A1C 6.1 % (<5.7)
[2023-02-15 19:32] LABS: Creatinine Urine 96.3 mg/dL
[2023-02-15 19:35] LABS: MALB Creatinine Ratio 16.5 mg/g (0-30); Microalbumin Urine Random 15.9 mg/L (0-16.7)
== END 2023-02-15 09:44 | disposition home or self-care (01) ==
LOC: ANHGOSHLAB 09:45
PROVIDERS: PCP Emergency Medicine; Visit Provider Emergency Medicine
DX: E11.9 Type 2 diabetes mellitus without complications (principal); E78.2 Mixed hyperlipidemia; Z12.5 Encounter for screening for malignant neoplasm of prostate
CPT/HCPCS: 36415; 80053; 80061; 82043; 83036; 84153; G0103

== ENCOUNTER 2023-04-16 05:17 | Day surgery (SDC) | payer BC, SELFPAY ==
[2023-03-20 16:50] VITALS: BMI 28.5
--- NOTE | 2023-04-12 12:57 | SUR.PREOP ---
Patient called regarding upcoming procedure. Voicemail left regarding appointment times.
--- NOTE | 2023-04-15 15:01 | PM.HPGS ---
History of Present Illness History of Present Illness Consent: Risks, benefits, and alternatives have been discussed and questions answered. Patient agrees to proceed with procedure. Chief complaint: fam hx of malignant neoplasm of digestive organs Narrative: Tereso Galicia is a 62 year old male With a family history of colon cancer. Review of Systems Review of Systems: All systems reviewed & are unremarkable except as noted in HPI and below PMFSH Past Medical History Medical History Atrial flutter Essential (primary) hypertension Hx of hemorrhoids Mixed hyperlipidemia Surgical History Surgical History H/O excision of mass excision of 6 cm right hip mass 01/23/21 H/O umbilical hernia repair 01/23/21 History of skin graft Hx of left inguinal hernia repair 1961 Hx of right inguinal hernia repair open repair with mesh in 2005 Family History Family History Father Hypertension Sibling Family history of rheumatoid arthritis Carcinoma of colon Hypertension Mother Family history of cardiovascular disease Cerebrovascular accident Hypertension Other Family history of psoriasis Social History Social History Smoking status: Never smoker Alcohol intake: current Substance use: never Substance use type: does not use Lack of Transportation: No Lack of Food: Never True Current Housing: I Have Housing Concerned About Future Housing: No Difficulty Paying Gas/Electric Bills: No Difficulty Paying for Meds: No Currently Unemployed: No Difficulty w/ Childcare or Family Care: No Living arrangements: with family Spiritual care concerns: No Meds Home Medications and Allergies Home Medications Medication Instructions Recorded Confirmed Type aspirin 81 mg tablet,delayed 81 mg PO DAILY 06/16/19 04/16/23 History release (Aspir-) glucosamine IJw-zyu-gebquqyynnf 2 tablet PO DAILY 06/16/19 04/16/23 History 400 mg-200 mg-333 mg tablet omega-3 fatty acids 1,000 mg 1,000 mg PO DAILY 06/16/19 04/16/23 History capsule cetirizine 10 mg tablet (Zyrtec) 20 mg PO DAILY 12/02/19 04/16/23 History ascorbate calcium (vitamin C) 500 500 mg PO DAILY 11/07/21 04/16/23 History mg tablet metoprolol tartrate 25 mg tablet 25 mg PO BID 11/07/21 04/16/23 History olmesartan 20 mg tablet 30 mg PO DAILY #135 tabs 10/31/22 04/16/23 Rx Phytomega Cholesteral 1 tab-cap PO DAILY 03/20/23 04/16/23 History cholecalciferol (vitamin D3) 10 10 mcg PO DAILY 03/20/23 04/16/23 History mcg (400 unit) capsule (Vitamin D3) fluocinolone 0.01 % topical 1 applic topical DAILY PRN Rash 03/20/23 04/16/23 History solution psyllium husk (aspartame) 3.4 gram 6.8 gm PO HS 03/20/23 04/16/23 History oral powder packet (Metamucil Fiber Singles) zinc 50 mg tablet 50 mg PO DAILY 03/20/23 04/16/23 History Allergies Allergy/AdvReac Type Severity Reaction Status Date / Time lisinopril Allergy Intermediate cough Verified 04/16/23 10:11 erythromycin base AdvReac Intermediate Nausea Verified 04/16/23 10:11 Exam Const: General: alert Orientation/consciousness: patient oriented x3 Resp: Auscultation: clear to auscultation bilaterally Cardio: Rhythm: regular rhythm GI: GI Palp: Yes Soft to palpation and No Tenderness to palpation present (GI) Neuro: General: patient oriented x3 Assessment and Plan Assessment and plan (1) Family history of colon cancer: Code(s): Z80.0 - Family history of malignant neoplasm of digestive organs Status: Acute Assessment and Plan: Colonoscopy with possible biopsy or polypectomy or cautery or injection of substances.
[2023-04-16 10:12] VITALS: BP 139/76; PULSE 58; RESP 18; TEMP 36.3; O2SAT 99
[2023-04-16] MEDS: LACTATED RINGERS 1,000 ML 150 ML IV CONT (10:15)
--- NOTE | 2023-04-16 10:21 | WPDANESEPPF ---
Anes - Initial Pre Proc Eval Procedure: Operation Date: 04/16/23 11:30 Proposed Procedures p Colonoscopy - Soto Prasad MD Date/Time: 04/16/23 10:21 Surgeon: Soto Prasad MD Pre Op Diagnosis: fam hx of malignant neoplasm of digestive organs Patient Data Age: 62 Gender: M Height: 1.83 m Weight: 95.2 kg Last Vital Signs Temp 36.3 C L 04/16/23 10:12 Pulse 58 L 04/16/23 10:12 Resp 18 04/16/23 10:12 BP 139/76 04/16/23 10:12 Pulse Ox 99 04/16/23 10:12 O2 Del Method Room Air 04/16/23 10:12 Allergies Allergy/AdvReac Type Severity Reaction Status Date / Time lisinopril Allergy Intermediate cough Verified 04/16/23 10:11 erythromycin base AdvReac Intermediate Nausea Verified 04/16/23 10:11 Home Medications Medication Instructions Recorded Confirmed Type aspirin 81 mg tablet,delayed 81 mg PO DAILY 06/16/19 04/16/23 History release (Aspir-) glucosamine CCy-rvc-lmejvfvrwcc 2 tablet PO DAILY 06/16/19 04/16/23 History 400 mg-200 mg-333 mg tablet omega-3 fatty acids 1,000 mg 1,000 mg PO DAILY 06/16/19 04/16/23 History capsule cetirizine 10 mg tablet (Zyrtec) 20 mg PO DAILY 12/02/19 04/16/23 History ascorbate calcium (vitamin C) 500 500 mg PO DAILY 11/07/21 04/16/23 History mg tablet metoprolol tartrate 25 mg tablet 25 mg PO BID 11/07/21 04/16/23 History olmesartan 20 mg tablet 30 mg PO DAILY #135 tabs 10/31/22 04/16/23 Rx Phytomega Cholesteral 1 tab-cap PO DAILY 03/20/23 04/16/23 History cholecalciferol (vitamin D3) 10 10 mcg PO DAILY 03/20/23 04/16/23 History mcg (400 unit) capsule (Vitamin D3) fluocinolone 0.01 % topical 1 applic topical DAILY PRN Rash 03/20/23 04/16/23 History solution psyllium husk (aspartame) 3.4 gram 6.8 gm PO HS 03/20/23 04/16/23 History oral powder packet (Metamucil Fiber Singles) zinc 50 mg tablet 50 mg PO DAILY 03/20/23 04/16/23 History Patient hx anesthesia problems: none Family hx anesthesia problems: none Results Review: All pre-operative results and documents have been reviewed as part of the pre-operative evaluation. [facility] Past Medical History Medical History Atrial flutter Essential (primary) hypertension Hx of hemorrhoids Mixed hyperlipidemia Surgical History Surgical History H/O excision of mass excision of 6 cm right hip mass 01/23/21 H/O umbilical hernia repair 01/23/21 History of skin graft Hx of left inguinal hernia repair 1961 Hx of right inguinal hernia repair open repair with mesh in 2005 Family History Family History Father Hypertension Sibling Family history of rheumatoid arthritis Carcinoma of colon Hypertension Mother Family history of cardiovascular disease Cerebrovascular accident Hypertension Other Family history of psoriasis Social History Social History Smoking status: Never smoker Alcohol intake: current Substance use: never Substance use type: does not use Lack of Transportation: No Lack of Food: Never True Current Housing: I Have Housing Concerned About Future Housing: No Difficulty Paying Gas/Electric Bills: No Difficulty Paying for Meds: No Currently Unemployed: No Difficulty w/ Childcare or Family Care: No Living arrangements: with family Spiritual care concerns: No Anes - Eval Final PreProcedure Day of Procedure 04/16/23 10:21 Patient weight: overweight Heart: regular rate and rhythm Lungs: clear to auscultation Airway: Mallampati scale class II Neurological: alert and oriented Last oral intake: >/= 8 hours ASA classification: II Emergent: no Anesthetic plan: proceed Anesthesia type and monitoring: general GIVS and standard monitoring Results Review: All pre-operative results and documents have been reviewed
[2023-04-16] MEDS: SIMETHICONE ORAL SUSPENSION 20 MG/0.3 ML 30 ML BOTTLE 0.6 ML IRRIGATION (11:11)
[2023-04-16 11:20] VITALS: BP 97/61; PULSE 60; RESP 18; O2SAT 97
[2023-04-16 11:30] VITALS: BP 104/61; PULSE 58; RESP 18; O2SAT 98
[2023-04-16 11:40] VITALS: BP 113/66; PULSE 56; RESP 18; O2SAT 100
== END 2023-04-16 11:52 | disposition home or self-care (01) ==
PROVIDERS: PCP Emergency Medicine; Visit Provider Internal Medicine Gastroenterology
PROC: 0DJD8ZZ Inspection of Lower Intestinal Tract, Via Natural or Artificial Opening Endoscopic (ICD-10-PCS; CPT 45378; principal; 2023-04-16 11:30)
DX: Z12.11 Encounter for screening for malignant neoplasm of colon (principal); K57.30 Diverticulosis of large intestine without perforation or abscess without bleeding; K64.8 Other hemorrhoids; K64.4 Residual hemorrhoidal skin tags; I10 Essential (primary) hypertension; E78.2 Mixed hyperlipidemia; Z79.82 Long term (current) use of aspirin; Z98.890 Other specified postprocedural states; Z86.79 Personal history of other diseases of the circulatory system; Z80.0 Family history of malignant neoplasm of digestive organs; Z82.49 Family history of ischemic heart disease and other diseases of the circulatory system
CPT/HCPCS: 45380; 88305; J7120

== ENCOUNTER 2023-10-12 15:18 | Emergency (ER) | payer BC, SELFPAY ==
[2023-10-12 15:26] VITALS: BP 157/83; PULSE 58; RESP 18; TEMP 36.7; O2SAT 97
--- NOTE | 2023-10-12 15:52 | ED.URI ---
HPI - URI/Sore Throat General Chief Complaint: Upper Respiratory Infection Stated Complaint: Chest Congestion,Cough,Sneezing,Runny Nose,Fever Time Seen by Provider: 10/12/23 15:53 Source: patient and RN notes reviewed Mode of arrival: ambulatory Limitations: no limitations History of Present Illness HPI Narrative: 63-year-old male presented for complaint of nonproductive cough for about 5 days. He endorses nasal congestion this week which started after trimming a pine tree. He states he is due to pain. Been taking Zyrtec, Flonase Mucinex. He states he is feeling better today. Denies shortness wheezing, nausea, vomiting, fevers or lethargy. MD elicited complaint: cough Related Data Home Medications Medication Instructions Recorded Confirmed aspirin 81 mg tablet,delayed 81 mg PO DAILY 06/16/19 10/12/23 release (Aspir-) metoprolol tartrate 25 mg tablet 25 mg PO BID 11/07/21 10/12/23 Allergies Allergy/AdvReac Type Severity Reaction Status Date / Time erythromycin base AdvReac Intermediate Nausea Verified 10/12/23 15:19 lisinopril AdvReac Intermediate cough Verified 10/12/23 15:19 Review of Systems Review of Systems: CONSTITUTIONAL: Denies malaise, chills, sweats, fever EYES: Denies visual changes, redness, or discharge ENT: Reports rhinorrhea, congestion, denies sinus pain, otalgia, sore throat CARDIOVASCULAR: Denies chest pain, palpitations, edema RESPIRATORY: Reports cough, post nasal drainage. Denies dyspnea GASTROINTESTINAL: Denies abdominal pain, nausea, vomiting, diarrhea SKIN: Denies rash or itching MUSCULOSKELETAL: Denies myalgia NEUROLOGIC: Denies headache PMFSH Past Medical History Medical History Atrial flutter Essential (primary) hypertension Hx of hemorrhoids Mixed hyperlipidemia Surgical History Surgical History H/O excision of mass excision of 6 cm right hip mass 01/23/21 H/O umbilical hernia repair 01/23/21 History of skin graft Hx of left inguinal hernia repair 1961 Hx of right inguinal hernia repair open repair with mesh in 2005 Family History Family History Father Hypertension Sibling Family history of rheumatoid arthritis Carcinoma of colon Hypertension Mother Family history of cardiovascular disease Cerebrovascular accident Hypertension Other Family history of psoriasis Social History Social History Smoking status: Never smoker Alcohol intake: current Substance use: never Substance use type: does not use Lack of Transportation: No Lack of Food: Never True Current Housing: I Have Housing Concerned About Future Housing: No Difficulty Paying Gas/Electric Bills: No Difficulty Paying for Meds: No Currently Unemployed: No Difficulty w/ Childcare or Family Care: No Living arrangements: with family Spiritual care concerns: No Exam Narrative: GENERAL: well-appearing EYES: PERRLA, conjunctivae clear ENT: Mucous membranes moist. TM pearly bautista with dull light reflex bilaterally; no tragal tenderness. Oropharynx not erythematous without lesions or exudate, no drooling, no hoarseness, no trismus, uvula midline. No tripod positioning, muffled voice, soft palate or pharyngeal wall bulging NECK: Supple. No lymphadenopathy CHEST: Clear to auscultation, breath sounds equal. No wheezing, rhonchi, rales, or stridor. No respiratory distress, speaks in full sentences. HEART: Regular rate and rhythm. No murmur heard. SKIN: Warm, dry, no rash. NEURO: Alert and oriented x3. PSYCH: Normal mood and affect Course Course Emergency Course: Patient is aware of diagnosis, understands and agrees to treatment plan. Anticipatory guidance given. Patient agrees to follow-up as directed and is aware of reasons to seek care at t
== END 2023-10-12 16:05 | disposition home or self-care (01) ==
PROVIDERS: Emergency Provider Nurse Practitioner Family; PCP Emergency Medicine
DX: J30.9 Allergic rhinitis, unspecified (principal); I48.92 Unspecified atrial flutter; I10 Essential (primary) hypertension; E78.2 Mixed hyperlipidemia; Z79.82 Long term (current) use of aspirin
CPT/HCPCS: 99213; G0463

== ENCOUNTER 2024-06-15 11:53 | Outpatient (CLI) | payer BC, SELFPAY ==
--- NOTE | ~2024-06-15 | US_ITS ---
EXAMINATION: US venous doppler [facility] DATE: 06/15/2024 12:22 INDICATION: Left lower limb pain, swelling and erythema. TECHNIQUE: Grayscale ultrasound images without and with compression and Doppler ultrasound images of the left lower extremity veins were obtained. COMPARISON: None. FINDINGS: The visualized portions of left common femoral vein, profunda (deep) femoral vein, femoral vein, popl iteal vein, peroneal veins, posterior tibial veins, gastrocnemius vein and greater saphenous vein out flow are patent. IMPRESSION: 1. No deep venous thrombosis in the left lower limb. Reviewed, dictated and finalized at location B.
--- OUTSIDE RECORDS SUMMARY | 2024-06-15 13:47 | XMS_ITS | Referral Summary ---
Author Organization [facility] Address [address] [place] [id number] Care Team Providers Care Dungeon Master Name Role Phone Giorgio Coy MD Primary Care Provider [phone] Encounters Date Type Department Care Team Description 04/10/2024 8:30 AM SERVICE TRANSFORMER REPAIR SUPERVISOR Office Visit [facility] [address] [place] [address] Emerald Vargas NP Atypical atrial flutter (HCC); S/P ablation of atrial flutter; Erectile dysfunction, unspecified erectile dysfunction type; Primary hypertension; Lipid screening from Last 3 Months Allergies Active Allergy Reactions Criticality Noted Date Comments Erythromycin Stomach upset Reaction: Stomach Cramps, Lisinopril Cough Low 03/10/2021 Medications glucosam-chondr oitin-diet cb25 116-100 mg capsule Take by mouth 2 TABLETS BY MOUTH DAILY Active olmesartan (BENICAR) 20 mg tablet Take 1 tablet (20 mg total) by mouth daily 2 Active UNABLE TO FIND PhytoWatchGuard- heart health supplement Active cholecalciferol (VITAMIN D-3) 2000 unit capsule Take by mouth Active yixsu-8-csm-epa -dpa-fish oil 1,050-1,200 mg capsule 1 capsule Active cetirizine (ZyrTEC) 10 mg tablet Take by mouth TAKE 2 TABLETS BY MOUTH DAILY Active aspirin 81 mg enteric coated tablet Take 1 tablet (81 mg total) by mouth daily Active cinnamon bark 500 mg capsule Take 2 capsules (1,000 mg total) by mouth daily Active naproxen (ALEVE) 220 mg tablet Take by mouth as needed Active zinc gluconate 50 mg tablet Take 1 tablet (50 mg total) by mouth daily Active ascorbic acid (vitamin C) 1,000 mg tablet Take 1 tablet (1,000 mg total) by mouth daily Active nebivoloL (BYSTOLIC) 5 mg tabletIndicatio ns:Atypical atrial flutter (HCC) Take 1 tablet (5 mg total) by mouth daily 90 tablet 3 5 Active Active Problems Problem Noted Date Diagnosed Date Erectile dysfunction 04/04/2023 S/P ablation of atrial flutter 08/04/2021 Atrial flutter 04/21/2021 Assessment & Plan (12/19/2021 8:27 AM CDT): S/p CTI ablation. Doing well, no recurrence. Counseled pt that he is at increased risk for developing AF in the future. For now, AFL can be considered cured. I asked him to call me if he develops new symptoms. He can continue to follow-up with Dr. Barnes as needed for hypertension. Assessment & Plan (06/20/2021 8:43 AM CDT): Doing very well s/p ablation of typical, CTI-dependent RA flutter on 05/17/21. No recurrence. Of note, pt did not have any inducible atypical flutters. Atrial fibrillation has not been convincingly documented. I counseled him that he is at increased risk for developing AF in the future, but would not assign him with this diagnosis at this point. As such, it is reasonable to discontinue anticoagulation 2 months post AFL ablation. --Continue apixaban 5 mg PO BID for now. Stop after 07/17/21. --Decrease metoprolol to 25 mg PO BID. Anticipate stopping at our next f/u visit if maintaining sinus rhythm and BP controlled....... --F/u 6 months Assessment & Plan (04/25/2021 8:59 AM SERVICE TRANSFORMER REPAIR SUPERVISOR): Recurrent, symptomatic, rapidly conducted atrial flutter. Occurring in the context of a structurally normal heart without prior interventions. Review of 12-lead ECGs shows multiple flutter morphologies. Pt has typical counterclockwise CTI-dependent flutter in addition to an atypical flutter. This atypical may in fact represent clockwise typical versus an atypical LA tachycardia. Discussed with patient at length. I have recommended diagnostic EP study, catheter ablation of his flutter mechanisms. I counseled him that if he has an LA tachycardia he would be viewed as having an AF-type substrate and I would recommend longer term anticoagulation with higher recurrence rates. If he only has typical RA flutter, I would anticipate stopping anticoagulation in 3 months if there is no incident atrial fibrillation. We discussed procedural steps, risks/benefits, recovery and expected outcomes. He understands and is eager to proceed. --Atrial flutter ablation w/anesthesia. --Continue apixaban 5 mg PO BID, hold 1 day prior to procedure. --Continue metoprolol 50 mg PO BID, hold 3 days prior to procedure. Chronic anticoagulation 04/21/2021 Mixed hyperlipidemia 04/21/2021 Palpitations 03/10/2021 Primary hypertension 03/10/2021 Pruritus ani 10/28/2015 Hemorrhoids 10/28/2015 Resolved Problems Problem Noted Date Diagnosed Date Resolved Date Atypical atrial flutter 03/10/2021 03/0 05/2021 Social History Tobacco Use Types Packs/Day Years Used Date Smoking Tobacco: Never Smokeless Tobacco: Never Tobacco Cessation:Counseling Given: Not Answered AUDIT-C Answer Date Recorded Q1: How often do you have a drink containing alc ohol? Never 05/17/2021 Average Number of Drinks Not on file 022 Frequency of Binge Drinking Not on file 04/20 Sex and Gender Information Value Date Recorded Sex Assigned at Not on file Legal Sex Male 8:35 AM SERVICE TRANSFORMER REPAIR SUPERVISOR Gender Identity Not on file Sexual Orientation Not on file Last Filed Vital Signs Vital Sign Reading Time Taken Comments Blood Pressure 144/74 04/10/2024 8:55 AM SERVICE TRANSFORMER REPAIR SUPERVISOR Pulse 72 04/10/2024 8:28 AM SERVICE TRANSFORMER REPAIR SUPERVISOR Temperature 36.7 C (98 F) 05/17/2021 4:45 PM CDT Respiratory Rate 20 05/17/2021 4:50 PM CDT Oxygen Saturation 96% 04/10/2024 8:28 AM SERVICE TRANSFORMER REPAIR SUPERVISOR Inhaled Oxygen Concentration - - Weight 100.7 kg (222 lb) 04/10/2024 8:28 AM SERVICE TRANSFORMER REPAIR SUPERVISOR Height 185.4 cm (6' 1 ) 04/10/2024 8:28 AM SERVICE TRANSFORMER REPAIR SUPERVISOR Body Mass Index 29.29 04/10/2024 8:28 AM SERVICE TRANSFORMER REPAIR SUPERVISOR Plan of Treatment Not on file Medical Devices Implanted Type Area Leather Drier Device Identifier Shelf Expiration Date Model / Serial / Lot Vascade Mvp 6-12fr Venous Closure [id number] - [id number] - [id number] Implanted:Qty: 1 on 05/17/2021 by Patrick Bingham III, MD at [facility] [employer] 03/09/2023 800-612C-1 0U / [id number] / [id number] Vascade Mvp 6-12fr Venous Closure [id number] - [id number] - [id number] Implanted:Qty: 1 on 05/17/2021 by Patrick Bingham III, MD at [facility] [employer] 03/09/2023 800-612C-1 0U / [id number] / [id number] Vascade Mvp 6-12fr Venous Closure [id number] - [id number] - [id number] Implanted:Qty: 1 on 05/17/2021 by Patrick Bingham III, MD at [facility] [employer] 03/09/2023 800-612C-1 0U / [id number] / [id number] Vascade Mvp 6-12fr Venous Closure [id number] - [id number] - [id number] Implanted:Qty: 1 on 05/17/2021 by Patrick Bingham III, MD at [facility] [employer] 03/09/2023 800-612C-1 0U / [id number] / [id number] Procedures Procedure Name Priority Date/Time Associated Diagnosis Comments POCT LIPID PANEL Routine 04/10/2024 8:40 AM SERVICE TRANSFORMER REPAIR SUPERVISOR Lipid screening from Last 3 Months Results * POCT lipid panel (04/10/2024 8:40 AM SERVICE TRANSFORMER REPAIR SUPERVISOR) Cholesterol, POC 166 mg/dL HDL, POC 15 mg/dL Triglycerides, POC 291 mg/dL LDL Cholesterol POC 109 mg/dL Chol/HDL Ratio, POC - Non-HDL Cholesterol, POC - mg/dL Cholesterol Total, POC 166 mg/dL Capillary blood 04/10/2024 8 :40 AM SERVICE TRANSFORMER REPAIR SUPERVISOR Emerald Vargas NP POINT OF CARE TEST ORDERA BLES Final Result from Last 3 Months Insurance R&L OOS R&L OOS [facility] ACCESS CHOICE Care Teams Dungeon Master Relationship Specialty Start Date End Date Giorgio Coy MD [facility] [address] [place] [address] [place] [id number] PCP - General Family Medicine 04/10/24
--- OUTSIDE RECORDS SUMMARY | 2024-06-15 13:47 | XMS_ITS | Clinical Summary ---
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 Gender Identity Not on file Sexual Orientation Not on file Plan of Treatment Health Maintenance Due Date Last Done Comments Hepatitis C Virus (HCV) Screening 1960 TdaP Immunization 1960 Colonoscopy 2005 Colorectal Cancer Screening 2005 Cologuard 2010 Immunochemical Fecal Occult Blood 2010 Pneumococcal Immunization (5 0+ years) (1 of 1 - PCV) 2010 Zoster Immunization (1 of 2) 2010 PSA Discussion 05/31/2015 Influenza Immunization (#1) 10/20/2023/05/2020, 03/29/2017 SARS-COV-2 Immunization (2 - season) 2023 07/06/2020 Respiratory Syncytial Virus (RSV) Immunization (Adult) (1 - 1-dose 75+ series) 05/31/2035 Hepatitis B Immunization Aged Out No longer eligible based on patient's age to complete this topic Meningococcal Immunization (ACWY) Aged Out No longer eligible b ased on patient's age to complete this topic Pneumococcal Immunization Combined Aged Out No longer eligible b ased on patient's age to complete this topic Rotavirus Immunization Aged Out No lo nger eligible based on patient's age to complete this topic
--- OUTSIDE RECORDS SUMMARY | 2024-06-15 13:47 | XMS_ITS | Clinical Summary ---
Author Organization [facility] Address [address] [place] [id number] Care Team Providers Care Histology Aide Name Role Phone Giorgio Coy MD Primary Care Provider [phone] Allergies Active Allergy Reactions Criticality Noted Date Comments Erythromycin Stomach upset Reaction: Stomach Cramps, Lisinopril Cough Low 03/10/2021 Medications glucosam-chondr oitin-diet cb25 116-100 mg capsule Take by mouth 2 TABLETS BY MOUTH DAILY Active olmesartan (BENICAR) 20 mg tablet Take 1 tablet (20 mg total) by mouth daily 2 Active UNABLE TO FIND [employer] supplement Active cholecalciferol (VITAMIN D-3) 2000 unit capsule Take by mouth Active uadga-8-yyh-epa -dpa-fish oil 1,050-1,200 mg capsule 1 capsule [...] months Assessment & Plan (04/25/2021 8:59 AM SPEECH THERAPIST EARLY INTERVENTION): Recurrent, symptomatic, rapidly conducted atrial flutter. Occurring [...] Date Atypical atrial flutter 03/10/2021 03/0 05/2021 Encounters Date Type Department Care Team Description 04/10/2024 8:30 AM SPEECH THERAPIST EARLY INTERVENTION Office Visit [facility] Cardiology [address] [place] [address] Emerald Vargas NP Atypical atrial flutter (HCC); S/P ablation of atrial flutter; Erectile dysfunction, unspecified erectile dysfunction type; Primary hypertension; Lipid screening from Last 3 Months Surgical History Surgery Date Site/Laterality Comments SKIN GRAFT HERNIA REPAIR CYST REMOVAL Medical History Medical History Date Comments Covid Palpitation Hemorrhoids Hypertension Skin cancer Arrhythmia Family History Medical History Relation Name Comments Colonic polyp Brother 1 Family history of colonic polyps - (Added by TW Conv) Colon cancer Brother 2 Colon cancer - (Added by TW Conv) Cancer Brother 3 Family history of malignant neoplasm - (Added by TW Conv) Hypertension Mother Stroke Mother Supraventricular tachycardia Mother Relation Name Status Comments Brother 1 Brother 2 Brother 3 Father (Age 90) Mother (Age 84) had ablati on for SVT Social History Tobacco Use Types Packs/Day Years [...] on file Legal Sex Male 8:35 AM SPEECH THERAPIST EARLY INTERVENTION Gender Identity Not on file Sexual Orientation Not on file Obstetrics History Last Filed Vital Signs Vital Sign Reading Time Taken Comments Blood Pressure 144/74 04/10/2024 8:55 AM SPEECH THERAPIST EARLY INTERVENTION Pulse 72 04/10/2024 8:28 AM SPEECH THERAPIST EARLY INTERVENTION Temperature 36.7 C (98 F) 05/17/2021 4:45 PM CDT Respiratory Rate 20 05/17/2021 4:50 PM CDT Oxygen Saturation 96% 04/10/2024 8:28 AM SPEECH THERAPIST EARLY INTERVENTION Inhaled Oxygen Concentration - - Weight 100.7 kg (222 lb) 04/10/2024 8:28 AM SPEECH THERAPIST EARLY INTERVENTION Height 185.4 cm (6' 1 ) 04/10/2024 8:28 AM SPEECH THERAPIST EARLY INTERVENTION Body Mass Index 29.29 04/10/2024 8:28 AM SPEECH THERAPIST EARLY INTERVENTION Plan of Treatment Health Maintenance Due Date Last Done Comments Colon Cancer Screening-Colonoscopy 1960 Depression Screening 1960 Hepatitis C Screening 1960 Prostate Cancer Screening-PSA 1960 DTaP/Tdap/Td Vaccine (1 - Tdap) 05/31/1971 Hepatitis B Screening 1978 Regular Well Visit/Exam 18-64 1978 Zoster Vaccine (1 of 2) 2010 Covid-19 Vaccine (2 - 2023-2 5 season) 2023 07/06/2020 Influenza Vaccine (Season Ended) 2024 12/07/2020, 05/11/2020, 03/29/2017 Pneumococcal vaccine <65 Aged Out No longer eligible based on patient's age to complete this topic Medical Devices Implanted Type Area Foreign Banknote Teller Device Identifier Shelf Expiration Date Model / Serial / Lot Vascade Mvp 6-12fr Venous Closure [id number] - [id number] - [id number] Implanted:Qty: 1 on 05/17/2021 by Patrick Bingham III, MD at [facility] [employer] 03/09/2023 800-612C-1 0U / [id number] / [id number] Vascade Mvp 6-12fr Venous Closure [id number] - [id number] - [id number] Implanted:Qty: 1 on 05/17/2021 by Patrick Bingham III, MD at [facility] [employer] 03/09/2023 800-612C-1 0U / [id number] / [id number] Vascade Mvp 6-12fr Venous Closure [id number] - [id number] - [id number] Implanted:Qty: 1 on 05/17/2021 by Patrick Bingham III, MD at [facility] [employer] 03/09/2023 800-612C-1 0U / [id number] / [id number] Vascade Mvp 6-12fr Venous Closure [id number] - [id number] - [id number] Implanted:Qty: 1 on 05/17/2021 by Patrick Bingham III, MD at [facility] [employer] 03/09/2023 800-612C-1 0U / [id number] / [id number] Procedures Procedure Name Priority Date/Time Associated Diagnosis Comments POCT LIPID PANEL Routine 04/10/2024 8:40 AM SPEECH THERAPIST EARLY INTERVENTION Lipid screening from Last 3 Months Results * POCT lipid panel (04/10/2024 8:40 AM SPEECH THERAPIST EARLY INTERVENTION) Cholesterol, POC 166 mg/dL HDL, POC 15 mg/dL Triglycerides, POC 291 mg/dL LDL Cholesterol POC 109 mg/dL Chol/HDL Ratio, POC - Non-HDL Cholesterol, POC - mg/dL Cholesterol Total, POC 166 mg/dL Capillary blood 04/10/2024 8 :40 AM SPEECH THERAPIST EARLY INTERVENTION Emerald Vargas NP POINT OF CARE TEST ORDERA BLES Final Result from Last 3 Months Insurance [employer] ACC CHOICE OOS BLUE ACC CHOICE OOS ANTHEM ACCESS CHOICE Care Teams Histology Aide Relationship Specialty Start Date End Date Giorgio Coy MD [facility] [place] [address] PCP - General Family Medicine 04/10/24
== END 2024-06-15 11:54 | disposition home or self-care (01) ==
PROVIDERS: PCP Family Medicine; Visit Provider Nurse Practitioner Family
DX: M79.89 Other specified soft tissue disorders (principal)
CPT/HCPCS: 93971

== ENCOUNTER 2024-09-07 13:10 | Outpatient (CLI) | payer BC, SELFPAY ==
--- NOTE | ~2024-09-07 | CT_ITS ---
EXAMINATION: CTA chest abdomen pelvis DATE: 09/14/2024 17:37 CDT INDICATION: Aortic root dilatation. COMPARISON: TECHNIQUE: Computed tomographic angiography (CTA) of the chest was performed, along with multiple con tiguous axial images of the abdomen and pelvis with 100 mL Omnipaque-350 intravenous contrast. The do se-length product was 1219.67 mGy-cm. Maximum intensity projection 3D-reconstructions of the aorta an d other arteries were constructed by the technologist on a separate workstation. FINDINGS/OBSERVATIONS: PULMONARY ARTERIES: No filling defect is identified within the main or proximal pulmonary artery. The main pulmonary artery is enlarged. THORACIC AORTA: No aneurysmal dilatation or dissection is present. The great vessels are intact. The ascending thoracic aorta measures 3.6 x 3.7 cm in maximal dimension. LUNGS: Trace bibasilar atelectasis MEDIASTINUM: No morphologically suspicious or pathologically enlarged lymph nodes are identified with in the mediastinum or bilateral axilla. BONES OF THE CHEST: No acute fracture. There are bridging endplate osteophytes at multiple levels in the thoracic spine, consistent with dif fuse idiopathic skeletal hyperostosis (DISH). No lytic or blastic lesions. HEART: The heart is within the upper limits of normal for size, without pericardial effusion. LIVER: Multiple flash filling of (likely) hemangiomas within segments 7 and segment 4 of the liver. The remainder of the liver enhances homogeneously and is not enlarged GALLBLADDER AND BILIARY SYSTEM: The gallbladder is only minimally distended, and otherwise unremarkable. PANCREAS: The pancreas enhances homogeneously without ductal dilatation. SPLEEN: The spleen enhances homogeneously and is not enlarged measuring 8 cm in longitudinal dimension. KIDNEYS: The bilateral kidneys enhance symmetrically without hydronephrosis or renal calculi. ADRENAL GLANDS: Unremarkable. GASTROINTESTINAL TRACT: Rectosigmoid diverticulosis without surrounding inflammatory change. APPENDIX: The air-filled appendix is of normal caliber (axial series, images 184 through 202). VASCULATURE: Unremarkable. No aneurysmal dilatation, calcified atherosclerosis or or significant stenosis. Vascularity is visualized to the level of the mid thigh with patency of the bilateral superficial fem oral arteries without significant stenosis or aneurysmal dilatation. LYMPH NODES: No pathologically enlarged or morphologically suspicious lymph nodes within the retroperitoneum or at the root of the mesentery. PELVIC STRUCTURES: The bladder is distended, and otherwise unremarkable. The prostate gland is not enlarged. BODY WALL AND MUSCULOSKELETAL: Fat-containing left inguinal hernia. Age-appropriate degenerative disease within the lumbosacral spine. IMPRESSION: No aneurysmal dilatation of the aortic root. No aneurysmal dilatation of the thoracic or abdominal aorta. Trace bibasilar atelectasis. Flash filling (likely) hemangiomas within the liver. Rectosigmoid diverticulitis without surrounding inflammatory change. Reviewed, dictated and finalized at location A.
--- OUTSIDE RECORDS SUMMARY | 2024-09-07 13:14 | XMS_ITS | Clinical Summary ---
Author Organization [facility] Address [address] [place] [phone] Care Team Providers Care Paper Products Machine Operator Name Role Phone Giorgio Coy MD Primary Care Provider [phone] [phone] Allergies Active Allergy Reactions Criticality Noted Date Comments Erythromycin Stomach upset Reaction: Stomach Cramps, Lisinopril Cough Low 03/10/2021 Medications glucosam-chond roitin-diet cb25 116-100 mg capsule Take by mouth 2 TABLETS BY MOUTH DAILY Active UNABLE TO FIND [employer]- heart health supplement Active cholecalcifero l (VITAMIN D-3) 2000 unit capsule Take by mouth Active qjtaa-1-wxs-ep a-dpa-fish oil 1,050-1,200 mg capsule 1 capsule Active [...] mouth daily Active nebivoloL (BYSTOLIC) 5 mg tabletIndicati ons:Atypical atrial flutter (HCC) Take 1 tablet (5 mg total) by mouth daily 90 tablet 3 5 Active olmesartan (BENICAR) 40 mg tablet Take 1 tablet (40 mg total) by mouth daily 30 tablet 11 5 08/12/19 26 Active olmesartan (BENICAR) 20 mg tablet Take 1 tablet (20 mg total) by mouth daily 2 08/12/19 25 Discontinu ed(Alterna te therapy) Active Problems Problem Noted Date Diagnosed Date Aortic aneurysm without rupture 08/11/2024 Erectile dysfunction 04/04/2023 S/P ablation of atrial [...] months Assessment & Plan (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 Occurring [...] Encounters Date Type Department Care Team Description 09/01/2024 Results Follow-Up [facility] Cardiology [address] [facility] [address] [place] [phone] Isha Fair RN Transthoracic Echo (TTE) Complete W Doppler/CF 08/31/2024 8:15 AM CDT Ancillary Procedure [facility] Cardiology [address] [facility] [address] [place] [phone] Aneurysm of ascending aorta without rupture 08/11/2024 8:30 AM CDT Office Visit [facility] Cardiology [address] [facility] [address] [place] [phone] Tomas East MD Aneurysm of ascending aorta without rupture (Primary Dx) 07/08/2024 Telephone [facility] Surgery [facility] Floor 5 [place] [address] Starla Webb BS Scheduling Appointments (Return referral to Dr. 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 Gender Identity Not on file Sexual Orientation Not on file Obstetrics History Last Filed Vital Signs Vital Sign Reading Time Taken Comments Blood Pressure 154/88 08/11/2024 8:34 AM CDT Pulse 54 08/11/2024 8:34 AM CDT Temperature 36.7 C (98 F) 05/17/2021 4:45 PM CDT Respiratory Rate 18 08/11/2024 8:34 AM CDT Oxygen Saturation 97% 08/11/2024 8:34 AM CDT Inhaled Oxygen Concentration - - Weight 100.7 kg (222 lb) 08/11/2024 8:34 AM CDT Height 185.4 cm (6' 1) 08/11/2024 8:34 AM CDT Body Mass Index 29.29 08/11/2024 8:34 AM CDT Plan of Treatment Health Maintenance Due Date Last Done Comments Colon Cancer Screening-Colonoscopy 1960 Depression Screening 1960 Hepatitis C Screening 1960 Prostate Cancer Screening-PSA 1960 DTaP/Tdap/Td Vaccine (1 - Tdap) 05/31/1971 Hepatitis B Screening 1978 Regular Well Visit/Exam 18-64 1978 Zoster Vaccine (1 of 2) 2010 Covid-19 Vaccine (2 - 2023-2 5 season) 2023 07/06/2020 Influenza Vaccine (#1) 2024 , 05/11/2020, 03/29/2017 Pneumococcal vaccine <65 Aged Out No longer eligible based on patient's age to complete this topic Medical Devices Implanted Type Area Liner Reroll Tender Device Identifier Shelf Expiration Date Model / Serial / Lot Vascade Mvp 6-12fr Venous Closure [id number] - [id number] - [id number] Implanted:Qty: 1 on 05/17/2021 by Patrick Bingham III, MD at [facility] [employer] 03/09/2023 800-612C-1 0U / [id number] / [id number] Vascade Mvp 6-12fr Venous Closure [id number] - [id number] - [id number] Implanted:Qty: 1 on 05/17/2021 by Patrick Bingham III, MD at [facility] [employer] 03/09/2023 800-612C-1 0U / [id number] / [id number] Vascade Mvp 6-12fr Venous Closure [id number] - [id number] - [id number] Implanted:Qty: 1 on 05/17/2021 by Patrick Bingham III, MD at [facility] [employer] 03/09/2023 800-612C-1 0U / [id number] / [id number] Vascade Mvp 6-12fr Venous Closure [id number] - [id number] - [id number] Implanted:Qty: 1 on 05/17/2021 by Patrick Bingham III, MD at [facility] [employer] 03/09/2023 800-612C-1 0U / [id number] / [id number] Procedures Procedure Name Priority Date/Time Associated Diagnosis Comments TRANSTHORACIC ECHO (TTE) COMPLETE W DOPPLER/CF WO CONTRAST Routine 08/31/2024 9:14 AM CDT Aneurysm of ascending aorta without rupture from Last 3 Months Results * TRANSTHORACIC ECHO (TTE) COMPLETE W DOPPLER/CF WO CONTRAST (08/31/2024 9:14 AM CDT) EF Mod BP 61 % CONS SCIMAGE Anatomical Region Laterality Modality Ultrasound 08/31/2024 8:11 AM CDT Narrative 08/31/2024 10:34 AM CDT [facility] Medical [facility] Cardiology [address] [facility] [address], [place] [address] [address] [facility] [address], [place] [address] P:[phone] P:[phone] Echocardiographic Report Patient Name: TERESO GALICIA D : 1960 Study Date: 08/31/2024 8:11:49 AM Gender: M Bowling Alley Manager: Myrtle Quarles)(CT), [facility] Location: [place] Ref Provider: TOMAS EAST Height(Cm): 185 BSA: 2.27 Weight(Kg): 100.7 Heart Rate: 52 BP: 154 / 88 Quality: Good Order Provider: TOMAS EAST PROCEDURES: Echocardiographic Report: Transthoracic echocardiogram with complete 2D, M-Mode, and color Doppler examination. With Strain Analysis. INDICATIONS: I71.21 Aneurysm of the ascending aorta, without rupture. MEASUREMENTS: 2D/MM Value Range Doppler Value Range EF Mod BP 61 % [ 52 - 72 ] SHELDON Vmax 2.98 cm2 [ 2.00 - 4.00 ] LV GLS -16.21 % AV Mean PG 3 mmHg LVIDd 2D 4.98 cm [ 4.20 - 5.80 ] AV Peak Wei 1.23 m/s [ 1.00 - 1.70 ] LVIDs 2D 3.40 cm [ 2.50 - 4.00 ] AV Peak PG 6 mmHg LVPWd 2D 1.23 cm [ 0.60 - 1.00 ] AV VTI 27.72 cm IVSd 2D 1.22 cm [ 0.60 - 1.00 ] LVOT Diam 2.35 cm [ 1.70 - 2.10 ] AoR Diam 2D 4.51 cm [ 3.10 - 3.70 ] LVOT Peak Wei 0.84 m/s [ 0.70 - 1.10 ] LA Volume 55.21 ml [ 18.00 - 58.00 ] LVOT VTI 21.06 cm LA Volume Index 24 cc/m2 [ 16 - 28 ] MV E Peak Wei 0.72 m/s [ 0.60 - 1.30 ] RA Volume 38.42 ml MV A Peak Wei 0.55 m/s [ 1.00 - 1.20 ] MV Decel Time 166 msec [ 104 - 258 ] PV Peak Wei 1.16 m/s [ 0.40 - 0.80 ] TR Peak Wei 2.60 m/s [ 1.00 - 2.80 ] TR Peak PG 27 mmHg RVSP 32.00 mmHg [ 10.00 - 36.00 ] RV S` 13.05 mmHg Lateral E` 0.08 m/s [ 0.10 - 0.15 ] Septal E` 0.06 m/s [ 0.08 - 0.15 ] E` 0.07 m/s E/E` 10 Tapse 2.50 cm [ 1.71 - 5.00 ] 2D/MM Value Range Doppler Value Range - FINDINGS: Interpretation Site: Exam was interpreted at [facility]. Left Ventricle: Normal left ventricular systolic function. No focal wall motion abnormalities. Normal left ventricular size. Mild concentric left ventricular hypertrophy. Impaired diastolic relaxation Grade I. Ejection fraction is measured at 61 %. Global Longitudinal Strain is -16 %. GLS is abnormal. Right Ventricle: Normal right ventricular size. Normal right ventricular systolic function. Left Atrium: The left atrium is normal in size. Right Atrium: The right atrium is normal in size. Atrial Septum: Normal atrial septum. Mitral Valve: Normal appearance of the mitral valve. No mitral valve regurgitation is seen. There is no hemodynamically significant mitral stenosis by Doppler. Aortic Valve: Normal appearance of the aortic valve. No evidence of hemodynamically significant aortic stenosis by Doppler. Trileaflet aortic valve. No aortic regurgitation. Tricuspid Valve: Normal appearance of the tricuspid valve. Estimated peak RVSP is 32 mmHg. Mild tricuspid regurgitation. Pulmonic Valve: Normal appearance of the pulmonic valve. Mild pulmonic regurgitation. Pericardium: Normal pericardium with no significant pericardial effusion. Aorta: Sinus of Valsalva is dilated. Sinus of Valsalva 4.6 cm. Sinotubular junction is normal. IVC: Normal size and normal respiratory collapse consistent with normal right atrial pressure (<5 mmHg). Pulmonary Artery: Normal pulmonary artery size. CONCLUSIONS: Normal left ventricular systolic function. No focal wall motion abnormalities. Normal left ventricular size. Mild concentric left ventricular hypertrophy. Impaired diastolic relaxation Grade I. Ejection fraction is measured at 61 %. Global Longitudinal Strain is -16 %. GLS is abnormal. Estimated peak RVSP is 32 mmHg. Mild tricuspid regurgitation. Mild pulmonic regurgitation. Sinus of Valsalva is dilated. Sinus of Valsalva 4.6 cm. Sinotubular junction is normal. Electronically Signed By: Dr. Lois Wooten [facility] 08/31/2024 10:33:51 AM CDT Procedure Note Lois Wooten MD - 08/31/2024 [facility] Medical Group Cardiology [address] [facility] [address] [address] [address] [facility] [address], [place] [address] P:[phone] P:[phone] Echocardiographic Report Patient Name: TERESO GALICIA D : 1960 Study Date: 08/31/2024 8:11:49 AM Gender: M Bowling Alley Manager: Myrtle Quarles)(CT), [facility] Location: [facility] Provider: TOMAS EAST Height(Cm): 185 BSA: 2.27 Weight(Kg): 100.7 Heart Rate: 52 BP: 154 / 88 Quality: Good Order Provider: TOMAS EAST PROCEDURES: Echocardiographic Report: Transthoracic echocardiogram with complete 2D, M-Mode, and color Dopplerexamination. With Strain Analysis. INDICATIONS: I71.21 Aneurysm of the ascending aorta, without rupture. MEASUREMENTS: 2D/MM Value Range Doppler ValueRange EF Mod BP 61 % [ 52 - 72 ] SHELDON Vmax 2.98cm2 [ 2.00 - 4.00 ] LV GLS -16.21 % AV Mean PG 3mmHg LVIDd 2D 4.98 cm [ 4.20 - 5.80 ] AV Peak Wei 1.23m/s [ 1.00 - 1.70 ] LVIDs 2D 3.40 cm [ 2.50 - 4.00 ] AV Peak PG 6mmHg LVPWd 2D 1.23 cm [ 0.60 - 1.00 ] AV VTI 27.72cm IVSd 2D 1.22 cm [ 0.60 - 1.00 ] LVOT Diam 2.35cm [ 1.70 - 2.10 ] AoR Diam 2D 4.51 cm [ 3.10 - 3.70 ] LVOT Peak Wei 0.84m/s [ 0.70 - 1.10 ] LA Volume 55.21 ml [ 18.00 - 58.00 ] LVOT VTI 21.06cm LA Volume Index 24 cc/m2 [ 16 - 28 ] MV E Peak Wei 0.72m/s [ 0.60 - 1.30 ] RA Volume 38.42 ml MV A Peak Wei 0.55m/s [ 1.00 - 1.20 ] MV Decel Time 166 msec [ 104 - 258 ] PV Peak Wei 1.16 m/s [ 0.40 - 0.80 ] TR Peak Wei 2.60 m/s [ 1.00 - 2.80 ] TR Peak PG 27 mmHg RVSP 32.00 mmHg [ 10.00 - 36.00 ] RV S` 13.05 mmHg Lateral E` 0.08 m/s [ 0.10 - 0.15 ] Septal E` 0.06 m/s [ 0.08 - 0.15 ] E` 0.07 m/s E/E` 10 Tapse 2.50 cm [ 1.71 - 5.00 ] 2D/MM Value Range Doppler ValueRange - FINDINGS: Interpretation Site: Exam was interpreted at [facility]. Left Ventricle: Normal left ventricular systolic function. No focal wall motionabnormalities. Normal left ventricular size. Mild concentric left ventricular hypertrophy.Impaired diastolic relaxation Grade I. Ejection fraction is measured at 61 %. GlobalLongitudinal Strain is -16 %. GLS is abnormal. Right Ventricle: Normal right ventricular size. Normal right ventricular systolicfunction. Left Atrium: The left atrium is normal in size. Right Atrium: The right atrium is normal in size. Atrial Septum: Normal atrial septum. Mitral Valve: Normal appearance of the mitral valve. No mitral valve regurgitation isseen. There is no hemodynamically significant mitral stenosis by Doppler. Aortic Valve: Normal appearance of the aortic valve. No evidence of hemodynamicallysignificant aortic stenosis by Doppler. Trileaflet aortic valve. No aortic regurgitation. Tricuspid Valve: Normal appearance of the tricuspid valve. Estimated peak RVSP is 32 mmHg.Mild tricuspid regurgitation. Pulmonic Valve: Normal appearance of the pulmonic valve. Mild pulmonic regurgitation. Pericardium: Normal pericardium with no significant pericardial effusion. Aorta: Sinus of Valsalva is dilated. Sinus of Valsalva 4.6 cm. Sinotubularjunction is normal. IVC: Normal size and normal respiratory collapse consistent with normal rightatrial pressure (<5 mmHg). Pulmonary Artery: Normal pulmonary artery size. CONCLUSIONS: Normal left ventricular systolic function. No focal wall motionabnormalities. Normal left ventricular size. Mild concentric left ventricular hypertrophy.Impaired diastolic relaxation Grade I. Ejection fraction is measured at 61 %. GlobalLongitudinal Strain is -16 %. GLS is abnormal. Estimated peak RVSP is 32 mmHg. Mild tricuspid regurgitation. Mild pulmonic regurgitation. Sinus of Valsalva is dilated. Sinus of Valsalva 4.6 cm. Sinotubularjunction is normal. Electronically Signed By: Dr. Lois Wooten [facility] 08/31/2024 10:33:51 AM CDT us Tomas East MD CV ECHO PROCEDURES Final Result from Last 3 Months Insurance [employer] ACC CHOICE [facility] AN[facility] ACCESS CHOICE Care Teams Paper Products Machine Operator Relationship Specialty Start Date End Date Giorgio Coy MD [address] [place] [address] [address] PCP - General Family Medicine 04/10/24
--- OUTSIDE RECORDS SUMMARY | 2024-09-07 13:14 | XMS_ITS | Referral Summary ---
Author Organization [facility] Address [address] [place] [phone] Care Team Providers Care Aquatics Instructor Name Role Phone Giorgio Coy MD Primary Care Provider +1 [phone] Encounters Date Type Department Care Team Description 09/01/2024 Results Follow-Up [facility] Cardiology [address] [place] [address] [place] [phone] Isha Fair RN Transthoracic Echo (TTE) Complete W Doppler/CF 08/31/2024 8:15 AM CDT Ancillary Procedure [facility] Cardiology [address] [place] [address] [address] [place] [phone] Aneurysm of ascending aorta without rupture 08/11/2024 8:30 AM CDT Office Visit [facility] Cardiology [address] [place] [address] [address] [place] [phone] Tomas East MD Aneurysm of ascending aorta without rupture (Primary Dx) 07/08/2024 Telephone [facility] Surgery [facility] Floor 5 [place] [address] Starla Webb BS Scheduling Appointments (Return referral to Dr. 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 [employer] 03/09/2023 800-612C-1 0U / [id number] / [id number] Vascade Mvp 6-12fr Venous Closure [id number] - [id number] - [id number] Implanted:Qty: 1 on 05/17/2021 by Patrick Bingham III, MD at [facility] [employer] 03/09/2023 800-612C-1 0U / [id number] / [id number] Vascade Mvp 6-12fr Venous Closure [id number] - [id number] - [id number] Implanted:Qty: 1 on 05/17/2021 by Patrick Bingham III, MD at [facility] [employer] 03/09/2023 800-612C-1 0U / [id number] / [id number] Vascade Mvp 6-12fr Venous Closure [id number] - [id number] - [id number] Implanted:Qty: 1 on 05/17/2021 by Patrick Bingham III, MD at [facility] [employer] 03/09/2023 800-612C-1 0U / [id number] / [id number] Procedures Procedure Name Priority Date/Time Associated [...] AM CDT Narrative 08/31/2024 10:34 AM CDT [facility] Medical Group Cardiology [address] [facility] [address] [id number] [address] [facility] [address], [place] [address] P:[phone] P:[phone] Echocardiographic Report Patient Name: TERESO GALICIA D : 1960 Study Date: 08/31/2024 8:11:49 AM Gender: M Concrete Batcher: Myrtle Quarles)(DC), [facility] Location: [place] Ref Provider: TOMAS EAST Height(Cm): 185 BSA: [...] FINDINGS: Interpretation Site: Exam was interpreted at [facility]. Left Ventricle: Normal left ventricular systolic function. [...] normal. Electronically Signed By: Dr. Lois Wooten [facility] 08/31/2024 10:33:51 AM CDT Procedure Note Lois Wooten MD - 08/31/2024 [facility] Medical Group Cardiology [address], [place] [address] [address] [facility] [address], [place] [address] P:[phone] P:[phone] Echocardiographic Report Patient Name: TERESO GALICIA D : 1960 Study Date: 08/31/2024 8:11:49 AM Gender: M Concrete Batcher: Myrtle Quarles)(CT), [facility] Location: [facility] Provider: TOMAS EAST Height(Cm): 185 BSA: 2.27 [...] FINDINGS: Interpretation Site: Exam was interpreted at [facility]. Left Ventricle: Normal left ventricular systolic function. [...] normal. Electronically Signed By: Dr. Lois Wooten [facility] 08/31/2024 10:33:51 AM CDT Tomas East MD CV ECHO PROCEDURES Final Result from Last 3 Months Insurance [employer] CHOICE [facility] ACCESS CHOICE Care Teams Aquatics Instructor Relationship Specialty Start Date End Date Giorgio Coy MD [facility] [address] [address] PCP - General Family Medicine 04/10/24
--- OUTSIDE RECORDS SUMMARY | 2024-09-07 13:14 | XMS_ITS | Clinical Summary ---
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
[2024-09-07 13:41] LABS: Estimated Glomerular Filt Rate > 60
== END 2024-09-07 13:11 | disposition home or self-care (01) ==
PROVIDERS: PCP Family Medicine; Visit Provider Internal Medicine
DX: I71.21 Aneurysm of the ascending aorta, without rupture (principal)
CPT/HCPCS: 71275; 74174; Q9967

== ENCOUNTER 2024-12-18 08:29 | Outpatient (CLI) | payer BC, SELFPAY ==
--- NOTE | ~2024-12-18 | CT_ITS ---
EXAMINATION: CT soft tissue neck w con DATE: 12/18/2024 08:53 INDICATION: Throat pain. TECHNIQUE: Computed tomography (CT) of the neck was performed with 75 mL Omnipaque-350 intravenous contrast. Automated exposure control and iterative reconstruction technique were employed. The dose-length product was 471.90 mGy-cm. COMPARISON: Neck CT 07/04/2007 FINDINGS: There is mild plaque in the proximal internal carotid with 0% stenosis relative to normal distal artery lumen diameters. The submandibular glands and parotid glands are normal. There are no pathologically enlarged lymph nodes. There are nodules in the thyroid measuring up to 9 mm, likely not clinically significant. The pharynx and larynx are normal. There is mild mucosal thickening in the paranasal sinuses. There is mild cervical spondylosis. IMPRESSION: 1. No etiology for the patient's symptoms. Reviewed, dictated and finalized at location E.
--- OUTSIDE RECORDS SUMMARY | 2024-12-18 08:45 | XMS_ITS | Clinical Summary ---
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 Gender Identity Not on file Sexual Orientation Not on file Plan of Treatment Health Maintenance Due Date Last Done Comments Hepatitis C Virus (HCV) Screening 1960 TdaP Immunization 1960 Cologuard 2005 Colonoscopy 2005 Colorectal Cancer Screening 2005 Immunochemical Fecal Occult Blood 2005 Pneumococcal Immunization (5 0+ years) (1 of 1 - PCV) 2010 Zoster Immunization (1 of 2) 2010 Influenza Immunization (#1) 2024 03/2 05/2020, 03/29/2017 SARS-COV-2 Immunization (2 - season) 2024 07/06/2020 Respiratory Syncytial Virus (RSV) Immunization (Adult) (1 - 1-dose 75+ series) 05/31/2035 Hepatitis B Immunization Aged Out No longer eligible based on patient's age to complete this topic Human Papillomavirus (HPV) Immunization Aged Out No longer eligible b ased on patient's age to complete this topic Meningococcal Immunization (ACWY) Aged Out No longer eligible b ased on patient's age to complete this topic Rotavirus Immunization Aged Out No lo nger eligible based on patient's age to complete this topic
--- OUTSIDE RECORDS SUMMARY | 2024-12-18 08:45 | XMS_ITS | Clinical Summary ---
Author Organization [facility] Address [address] [place] [id number] Care Team Providers Care Retort Setter Name Role Phone Giorgio Coy MD Primary Care Provider [phone] Allergies Active Allergy Reactions Criticality Noted Date Comments Erythromycin Stomach upset Reaction: Stomach Cramps, Lisinopril Cough Low 03/10/2021 Medications glucosam-chondr oitin-diet cb25 116-100 mg capsule Take by mouth 2 TABLETS BY MOUTH DAILY Active UNABLE TO FIND PhytoPowered- heart health supplement Active cholecalciferol (VITAMIN D-3) 2000 unit capsule Take by mouth Active rzxgm-9-coo-epa -dpa-fish oil 1,050-1,200 mg capsule 1 capsule [...] 30 tablet 11 5 08/12/19 26 Active Active Problems Problem Noted Date Diagnosed [...] months Assessment & Plan (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 Gender Identity Not on file Sexual [...] of 2) 2010 Covid-19 Vaccine (2 - 2024-2 6 season) 2024 07/06/2020 Influenza Vaccine (#1) 2024 , 05/11/2020, 03/29/2017 Pneumococcal vaccine <65 Aged Out No longer eligible based on patient's age to complete this topic Medical Devices Implanted Type Area Microbiology Coordinator Device Identifier Shelf Expiration Date Model / Serial / Lot Vascade Mvp 6-12fr Venous Closure [id number] - [id number] - [id number] Implanted:Qty: 1 on 05/17/2021 by Patrick Bingham III, MD at [facility] [employer] 03/09/2023 800-612C-1 0U / [id number] / [id number] [id number] Vascade Mvp 6-12fr Venous Closure [id number] - [id number] - [id number] Implanted:Qty: 1 on 05/17/2021 by Patrick Bingham III, MD at [facility] [employer] 03/09/2023 800-612C-1 0U / [id number] / [id number] [id number] Vascade Mvp 6-12fr Venous Closure [id number] - [id number] - [id number] Implanted:Qty: 1 on 05/17/2021 by Patrick Bingham III, MD at [facility] [employer] 03/09/2023 800-612C-1 0U / [id number] [id number] / [id number] [id number] Vascade Mvp 6-12fr Venous Closure [id number] - [id number] - [id number] Implanted:Qty: 1 on 05/17/2021 by Patrick Bingham III, MD at [facility] [employer] 03/09/2023 800-612C-1 0U / [id number] [id number] / [id number] Insurance [facility] CHOICE OOS ANTH ACCESS CHOICE Member Subscriber Plan / Payer (Ef fective 2023-Present) Name:Tereso Galicia Member ID:[id number] Relation to Subscriber:Self Name:Tereso Galicia Subscriber ID:[id number] Payer ID:[id number] (NAIC) Type:[employer] Address: [address] [place] [id number] [facility] Care Teams Retort Setter Relationship Specialty Start Date End Date Giorgio Coy MD [facility] [address] [address] PCP - General Family Medicine 04/10/24
[2024-12-18 08:49] LABS: Estimated Glomerular Filt Rate > 60
== END 2024-12-18 08:30 | disposition home or self-care (01) ==
PROVIDERS: PCP Family Medicine; Visit Provider Otolaryngology
DX: R07.0 Pain in throat (principal); R09.89 Other specified symptoms and signs involving the circulatory and respiratory systems; R13.10 Dysphagia, unspecified
CPT/HCPCS: 70491; Q9967

== ENCOUNTER 2025-02-05 10:21 | Outpatient (CLI) | payer BC, SELFPAY ==
--- OUTSIDE RECORDS SUMMARY | 2025-02-05 10:54 | XMS_ITS | Clinical Summary ---
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
--- OUTSIDE RECORDS SUMMARY | 2025-02-05 10:54 | XMS_ITS | Clinical Summary ---
Author Organization [facility] Address [address] [place] [id number] Care Team Providers Care White Goods Appliance Tech Name Role Phone Giorgio Coy MD Primary Care Provider [phone] Allergies Active Allergy Reactions Criticality Noted Date Comments Erythromycin Stomach upset Reaction: Stomach Cramps, Lisinopril Cough Low 03/10/2021 Medications glucosam-chondr oitin-diet cb25 116-100 mg capsule Take by mouth 2 TABLETS BY MOUTH DAILY Active UNABLE TO FIND [employer]- heart health supplement Active cholecalciferol (VITAMIN D-3) 2000 unit capsule Take by mouth Active athee-7-pjc-epa -dpa-fish oil 1,050-1,200 mg capsule 1 capsule [...] months Assessment & Plan (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 [...] on file Legal Sex Male 8:35 AM STEAM POWERPLANT SUPERVISOR Gender Identity Not on file Sexual [...] this topic Medical Devices Implanted Type Area Ground Defence Officer Device Identifier Shelf Expiration Date Model / Serial / Lot Vascade Mvp 6-12fr Venous Closure [id number] - [id number] - [id number] Implanted:Qty: 1 on 05/17/2021 by Patrick Bingham III, MD at [facility] [employer] 03/09/2023 800-612C-1 0U / [id number] / [id number] [id number] Vascade Mvp 6-12fr Venous Closure [id number] - [id number] - [id number] Implanted:Qty: 1 on 05/17/2021 by Patrick Bingham III, MD at [facility] [employer] 03/09/2023 800-612C-1 0U / [id number] [id number] / [id number] [id number] Vascade Mvp 6-12fr Venous Closure [id number] - [id number] - [id number] Implanted:Qty: 1 on 05/17/2021 by Patrick Bingham III, MD at [facility] [employer] 03/09/2023 800-612C-1 0U / [id number] / [id number] [id number] Vascade Mvp 6-12fr Venous Closure [id number] - [id number] - [id number] Implanted:Qty: 1 on 05/17/2021 by Patrick Bingham III, MD at [facility] [employer] 03/09/2023 800-612C-1 0U / [id number] [id number] / [id number] Insurance [facility] CHOICE OOS ANTH ACCESS CHOICE [facility] ACCESS CHOICE Care Teams White Goods Appliance Tech Relationship Specialty Start Date End Date Giorgio Coy MD [facility] [address] [address] PCP - General Family Medicine 04/10/24
[2025-02-05 13:15] LABS: Alanine Aminotransferase 23 U/L (6-50); Albumin Level 4.5 g/dL (3.5-5.1); Alkaline Phosphatase 55 U/L (38-126); Anion Gap 5 mmol/L (4-12); Aspartate Amino Transferase 41 U/L (17-59); Bilirubin,Total 0.9 mg/dL (0.2-1.3); Blood Urea Nitrogen 11 mg/dL (9-20); Calcium 9.3 mg/dL (8.4-10.2); Carbon Dioxide 28 mmol/L (22-30); Chloride 106 mmol/L (98-107); Cholesterol 174 mg/dL (0-200); Estimated Glomerular Filt Rate > 60; Glucose 110 mg/dL (65-110); HDL Direct 26 mg/dL; Potassium 4.2 mmol/L (3.4-5.0); Sodium 139 mmol/L (137-145); Total Protein 7.7 g/dL (6.3-8.2); Triglycerides 292 mg/dL (<150)
[2025-02-05 13:34] LABS: Hemoglobin A1C 6.3 % (<5.7)
[2025-02-05 13:36] LABS: Thyroid Stimulating Hormone Reflex 3.920 uIU/mL (0.465-4.68)
== END 2025-02-05 10:22 | disposition home or self-care (01) ==
LOC: ANHGOSHLAB 10:21
PROVIDERS: PCP Family Medicine; Visit Provider Family Medicine
DX: E78.5 Hyperlipidemia, unspecified (principal)
CPT/HCPCS: 36415; 80053; 80061; 83036; 84443